=== PATIENT | male | born 1950 | race African-American/Black ===

== ENCOUNTER 2017-07-02 09:13 | Emergency (ER) | END 2017-07-02 15:46 | disposition home or self-care (01) ==

== ENCOUNTER 2018-08-12 07:24 | Inpatient (IN) | payer OTHER ==
[~2018-08-12] VITALS: Ht 170.2 cm; Wt 85.0 kg
[~2018-08-12 07:24] MED LIST: ALBU18HF INHALATION; ALBU2.5V3 NEB; CEPH-443 PO; IBUP-1542 PO; OXYC5CAP17 PO; TAMS-14 PO; ZOF8 PO
[2018-08-12] MEDS ORDERED: VANCOMYCIN 1 GM (PMX) 250 ML IVPB STA (07:46)
[2018-08-12] MEDS ORDERED: SODIUM CHLORIDE 0.9% 1L BAG IV* STA (07:46)
[2018-08-12] MEDS ORDERED: PIPER-TAZO 3.375 GM IV (PMX) 100 ML IVPB STA (07:46)
[2018-08-12] MEDS ORDERED: ONDANSETRON 4 MG INJ IV PRN ×2 (09:00→09:30)
[2018-08-12] MEDS ORDERED: ACETAMINOPHEN 325 MG TAB PO PRN ×2 (09:00→09:30)
[2018-08-12] MEDS ORDERED: morphine 4 MG/ML VIAL IV STA (09:02)
[2018-08-12] MEDS ORDERED: ONDANSETRON 4 MG INJ IV STA (09:02)
[2018-08-12] MEDS ORDERED: DOCUSATE SODIUM 100 MG CAP PO PRN (09:30)
[2018-08-12] MEDS ORDERED: oxyCODONE 5 MG TAB PO PRN (09:30)
[2018-08-12] MEDS ORDERED: NACL 0.9% 3 ML SYG IV SCH (09:30)
[2018-08-12] MEDS ORDERED: MAGNESIUM HYDROXIDE 30ML CUP PO PRN (09:30)
[2018-08-12] MEDS ORDERED: hydrALAzine 20 MG INJ IV PRN (09:30)
[2018-08-12] MEDS ORDERED: ALBUTEROL 0.083% (NEB) 2.5 MG/3 ML AMP NEB PRN (09:30)
[2018-08-12] MEDS ORDERED: VANCOMYCIN IV PER PHARMACY XX SCH (09:30)
--- NOTE | 2018-08-12 10:28 | ERD ---
ER Documentation Chief Complaint Chief Complaint right leg wound x 4 days HPI Patient is a 67-year-old male with hypertension who presents with bilateral leg wounds. He said that it started 2 weeks ago but have been worsening and he has been scratching them. There is redness which has been spreading. He says that he has had pain and has tried Advil. He has no fevers. The wounds are dripping and oozing. He is unsure if he has diabetes. Upon review of old medical records this is the patient's fourth visit to the ER since 2010. He does not currently have a primary doctor. ROS All systems reviewed and are negative except as per history of present illness. Medications Home Meds Active Scripts Ondansetron Hcl* (Zofran*) 8 Mg Tab, 8 MG PO Q6H PRN for NAUSEA AND OR VOMITING, #20 TAB Prov:GERARDO BYRD MD 07/02/17 Oxycodone Hcl* (IR) (Oxycodone Hcl*) 5 Mg Capsule, 5 MG PO Q6 PRN for PAIN, #10 TAB Prov:GERARDO BYRD MD 07/02/17 Cephalexin* (Keflex*) 500 Mg Capsule, 500 MG PO BID for 10 Days, CAP Prov:GERARDO BYRD MD 07/02/17 Ibuprofen* (Motrin*) 600 Mg Tab, 600 MG PO Q6H PRN for PAIN, #30 TAB Prov:GERARDO BYRD MD 07/02/17 Tamsulosin Hcl* (Flomax*) 0.4 Mg Cap.er.24h, 0.4 MG PO QPM, #7 CAP Prov:GERARDO BYRD MD 07/02/17 Reported Medications Albuterol Sulfate* (Ventolin HFA*) 18 Gm Hfa.aer.ad, 2 PUFF INHALATION Q4H, #1 INHALER 07/02/17 Albuterol Sulfate* (Albuterol Sulfate* Neb) 0.083%-3 Ml Neb, 1.25 MG NEB TID PRN for WHEEZING AND SOB, #30 VIAL 07/02/17 Allergies Allergies: Coded Allergies: No Known Allergies (Verified Allergy, Mild, 07/02/17) PMhx/Soc History of Surgery: No Anesthesia Reaction: No Hx Neurological Disorder: No Hx Respiratory Disorders: Yes (Asthma) Hx Cardiac Disorders: No Hx Psychiatric Problems: No Hx Miscellaneous Medical Probl: No Hx Alcohol Use: No Hx Substance Use: No Hx Tobacco Use: No Smoking Status: Never smoker FmHx Family History: diabetes Physical Exam Vitals Vital Signs Date Temp Pulse Resp B/P (MAP) Pulse Ox O2 O2 Flow FiO2 Time Delivery Rate 08/12/18 Nasal 08:10 Cannula 08/12/18 97.3 99 18 203/97 95 07:27 (132) Physical Exam Const: No acute distress Head: Atraumatic Eyes: Normal Conjunctiva ENT: Normal External Ears, Nose and Mouth. Neck: Full range of motion. No meningismus. Resp: Clear to auscultation bilaterally Cardio: Regular rate and rhythm, no murmurs Abd: Soft, non tender, non distended. Normal bowel sounds Skin: Bilateral lower extremity cellulitis with weeping and oozing and foul- smelling discharge Back: No midline or flank tenderness Ext: Bilateral lower extremity cellulitis Neur: Awake and alert Psych: Normal Mood and Affect Result Diagram: 08/12/18 0810 08/12/18 0810 Results 24 hrs Laboratory Tests Test 08/12/18 08:09 08/12/18 08:10 08/12/18 08:16 Urine Color YELLOW Urine Clarity CLEAR Urine pH 5.0 Urine Specific [place] 1.029 Urine Ketones TRACE mg/dL Urine Nitrite NEGATIVE mg/dL Urine Bilirubin NEGATIVE mg/dL Urine Urobilinogen 1+ mg/dL Urine Leukocyte Esterase NEGATIVE Bibi/ul Urine Hemoglobin NEGATIVE mg/dL Urine Glucose NEGATIVE mg/dL Urine Total Protein NEGATIVE mg/dl Hemoglobin A1c 7.9 % White Blood Count 10.9 10^3/ul Red Blood Count 4.37 10^6/ul Hemoglobin 13.1 g/dl Hematocrit 40.2 % Mean Corpuscular Volume 92.0 fl Mean Corpuscular Hemoglobin 30.0 pg Mean Corpuscular 32.6 g/dl Hemoglobin Concent Red Cell Distribution Width 12.7 % Platelet Count 369 10^3/UL Mean Platelet Volume 9.3 fl Immature Granulocytes % 0.500 % Neutrophils % 65.9 % Lymphocytes % 21.3 % Monocytes % 7.8 % Eosinophils % 4.0 % Basophils % 0.5 % Nucleated Red Blood Cells % 0.0 /100WBC Immature Granulocytes # 0.050 10^3/ul Neutrophils # 7.2 10^3/ul Lymphocytes # 2.3 10^3/ul Monocytes # 0.9 10^3/ul Eosinophils # 0.4 10^3/ul Basophils # 0.1 10^3/ul Nucleated Red Blood Cells # 0.0 10^3/ul Prothrombin Time 11.7 Sec Prothrombin Time Ratio 0.9 INR International 0.85 Normalized Ratio Activated Partial Thromboplast 24.7 Sec Time Sodium Level 140 mmol/L Potassium Level 4.2 mmol/L Chloride Level 109 mmol/L Carbon Dioxide Level 24 mmol/L Anion Gap 7 Blood Urea Nitrogen 14 mg/dl Creatinine 0.86 mg/dl Est Glomerular Filtrat > 60 mL/min Rate mL/min Glucose Level 151 mg/dl Calcium Level 9.2 mg/dl Total Bilirubin 0.2 mg/dl Direct Bilirubin 0.00 mg/dl Indirect Bilirubin 0.2 mg/dl Aspartate Amino Transf (AST/SGOT) 18 IU/L Alanine 14 IU/L Aminotransferase (ALT/SGPT) Alkaline Phosphatase 181 IU/L Troponin I < 0.012 ng/ml Total Protein 8.2 g/dl Albumin 4.0 g/dl Globulin 4.20 g/dl Albumin/Globulin Ratio 0.95 POC Venous Lactate 1.3 mmol/L Current Medications Medications Dose Sig/Rosalie Start Time Status Last (Trade) Ordered Route PRN Stop Time Admin Dose Reason Admin Sodium 2,550 ml BOLUS OVER 2 08/12/18 DC 08/12/18 Chloride HOURS STAT 07:46 08/12/18 08:30 (NS) IV* 07:47 Vancomycin 250 ml @ ONCE STAT 08/12/18 DC 08/12/18 HCl 125 mls/hr IVPB 07:46 08/12/18 09:31 09:45 Piperacillin 100 ml @ ONCE STAT 08/12/18 DC 08/12/18 Sod/ 200 mls/hr IVPB 07:46 08/12/18 08:29 Tazobactam 08:15 Sod Ondansetron 4 mg BRIDGE ORDER 08/12/18 HCl (Zofran PRN IV 09:00 08/13/18 Inj) NAUSEA/VOMITI 08:59 NG 650 mg ER BRIDGE 08/12/18 Acetaminophen PRN PO 09:00 08/13/18 (Tylenol .MILD PAIN 08:59 Tab) 1-3 OR TEMP Morphine 4 mg ONCE STAT 08/12/18 DC 08/12/18 Sulfate IV 09:02 08/12/18 09:20 (morphine) 09:03 Ondansetron 4 mg ONCE STAT 08/12/18 DC 08/12/18 HCl (Zofran IV 09:02 08/12/18 09:20 Inj) 09:03 Albuterol 1.25 mg TID PRN 08/12/18 (Proventil NEB WHEEZING 09:30 0.083% (Neb)) AND SOB Oxycodone 5 mg Q6H PRN 08/12/18 HCl PO PAIN 09:30 (Roxicodone) Tamsulosin 0.4 mg QPM PO 08/12/18 HCl 21:00 (Flomax) IV Flush 3 ml PER 08/12/18 (NS 3 ml) PROTOCOL IV 09:30 Ondansetron 4 mg Q6H PRN 08/12/18 HCl (Zofran IV 09:30 Inj) NAUSEA/VOMITI NG 650 mg Q6H PRN 08/12/18 Acetaminophen PO .PAIN 1-3 09:30 (Tylenol OR TEMP Tab) Morphine 2 mg Q4H PRN 08/12/18 Sulfate IV .SEVERE 09:30 (morphine) PAIN 7-10 Docusate 100 mg Q12H PRN 08/12/18 Sodium PO 09:30 (Colace) .CONSTIPATION Magnesium 30 ml DAILY PRN 08/12/18 Hydroxide PO 09:30 (Milk Of Mag) .CONSTIPATION Famotidine 20 mg Q12 PO 08/12/18 (Pepcid) 21:00 Enoxaparin 40 mg DAILY SC 08/13/18 Sodium 09:00 (Lovenox) Vancomycin 1 ea NOTE XX 08/12/18 HCl (Vanco 09:30 Iv Per Pharmacy) Piperacillin 100 ml @ Q8 IVPB 08/12/18 Sod/ 200 mls/hr 14:00 Tazobactam Sod Hydralazine 10 mg Q4H PRN 08/12/18 HCl IV SBP >170 09:30 (Apresoline) Discontinue ONCE ONCE 08/12/18 Miscellaneous current oral XX 10:30 08/12/18 sulfonylur... 10:31 Information (* Miscellaneous Pharmacy Order) ONCE ONCE 08/12/18 Miscellaneous HYPOGLYCEMIA XX 10:30 08/12/18 PROTOCOL 10:31 Information w... (* Miscellaneous Pharmacy Order) Insulin NOVOLOG WITH MEALS 08/12/18 Aspart *MILD* BEDTIME SC 12:00 (Novolog ALGORITHM Insulin Pen) Discontinue ONCE ONCE 08/12/18 Miscellaneous all previ... XX 10:30 08/12/18 10:31 Information (* Miscellaneous Pharmacy Order) 1 tab Q4H PRN 08/12/18 Acetaminophen PO MODERATE 10:30 / PAIN LEVEL Hydrocodone 4-6 Bitart ([place] (5/325)) Mupirocin 1 applic BID TOP 08/12/18 (Bactroban) 10:30 Procedures/MDM Patient is a 67-year-old male who presents with bilateral lower extremity cellulitis. I doubt sepsis at this time. The patient was given vancomycin and Zosyn and will be admitted to the care of the panel team to a medical surgical bed. He did have elevated blood pressure. Departure Diagnosis: Primary Impression: Cellulitis Site of cellulitis: extremity Site of cellulitis of extremity: lower extremity Laterality: unspecified laterality Qualified Codes: L03.119 - Cellulitis of unspecified part of limb Additional Impression: Hypertension Hypertension type: essential hypertension Qualified Codes: I10 - Essential (primary) hypertension Condition: YISEL Valles MD Aug 12, 2018 10:28
[2018-08-12] MEDS ORDERED: DIPHENHYDRAMINE 50 MG INJ IV PRN (10:30)
[2018-08-12] MEDS ORDERED: DEXTROSE 50% 50 ML SYRINGE IV PRN ×2 (11:00)
[2018-08-12] MEDS ORDERED: GLUCOSE GEL 15 GRAM TUBE PO PRN ×2 (11:00)
[2018-08-12] MEDS ORDERED: GLUCAGON 1 MG INJ IM PRN (11:00)
[2018-08-12] MEDS ORDERED: GLUCOSE GEL 15 GRAM TUBE BUCCAL PRN (11:00)
[2018-08-12] MEDS ORDERED: VANCOMYCIN 750 MG (PMX) 250 ML IVPB ONE (11:00)
[2018-08-12] MEDS: morphine 2 MG INJ IV PRN ×3 (12:18→22:25)
[2018-08-12] MEDS: MUPIROCIN 2% 22 GM OINT TOP SCH ×2 (12:36→21:04)
[2018-08-12 12:55] VITALS: BP 152/79; PULSE 76; RESP 16
[2018-08-12] MEDS: INSULIN ASPART [NOVOLOG] 3 ML PEN SC SCH ×3 (13:52→21:00)
--- NOTE | 2018-08-12 14:32 | HP ---
Date/Time of Note Date/Time of Note DATE: 08/12/18 TIME: 14:11 Assessment/Plan VTE Prophylaxis SCD applied (from Nsg): Yes Pharmacological prophylaxis: LMWH Lines/Catheters IV Catheter Type (from Nrsg): Saline Lock Assessment/Plan Assessment/Plan 1. Bilateral lower extremity pain - most likely from open sores from excess itching - will give bendryl and pain control - no real infection noted but will give empiric antibiotics and check wound culture - wound consultation placed - imaging studies negative for DVT or vascular compromise 2. New onset diabetes mellitus - A1c noted - will start sliding scale and consult Diabetic education - lifestyle modifications discussed 3. b/l LE edema - will check ECHO to evaluate EF - most likely secondary to prolonged standing with pooling of fluids but given has not been worked up by a PCP in a while, will check for heart failure 4. Asthma - stable - PRN Nebs 5. BPH - Flomax continued 6. Elevated BP - will start on Lisinopril and adjust as needed 7. Diet - carb controlled/ Cardiac 8. DVT ppx - SCD 9. Disposition - Admit to med/surg for treatment of bilateral lower extremity wounds Result Diagram: 08/12/18 0810 08/12/18 0810 Results 24hrs Laboratory Tests Test 08/12/18 08:09 08/12/18 08:10 08/12/18 08:16 08/12/18 11:06 Urine Color YELLOW Urine Clarity CLEAR Urine pH 5.0 Urine Specific [place] 1.029 Urine Ketones TRACE A Urine Nitrite NEGATIVE Urine Bilirubin NEGATIVE Urine Urobilinogen 1+ H Urine Leukocyte Esterase NEGATIVE Urine Hemoglobin NEGATIVE Urine Glucose NEGATIVE Urine Total Protein NEGATIVE Hemoglobin A1c 7.9 H White Blood Count 10.9 H Red Blood Count 4.37 L Hemoglobin 13.1 L Hematocrit 40.2 L Mean Corpuscular Volume 92.0 Mean Corpuscular 30.0 Hemoglobin Mean Corpuscular 32.6 Hemoglobin Concent Red Cell Distribution 12.7 Width Platelet Count 369 Mean Platelet Volume 9.3 Immature Granulocytes % 0.500 H Neutrophils % 65.9 Lymphocytes % 21.3 Monocytes % 7.8 Eosinophils % 4.0 Basophils % 0.5 Nucleated Red Blood 0.0 Cells % Immature Granulocytes # 0.050 H Neutrophils # 7.2 Lymphocytes # 2.3 Monocytes # 0.9 Eosinophils # 0.4 Basophils # 0.1 Nucleated Red Blood 0.0 Cells # Prothrombin Time 11.7 L Prothrombin Time Ratio 0.9 INR International 0.85 Normalized Ratio Activated 24.7 Partial Thromboplast Time Sodium Level 140 Potassium Level 4.2 Chloride Level 109 Carbon Dioxide Level 24 Anion Gap 7 Blood Urea Nitrogen 14 Creatinine 0.86 Est Glomerular Filtrat > 60 Rate mL/min Glucose Level 151 Calcium Level 9.2 Total Bilirubin 0.2 Direct Bilirubin 0.00 Indirect Bilirubin 0.2 Aspartate Amino 18 Transf (AST/SGOT) Alanine 14 Aminotransferase (ALT/SG PT) Alkaline Phosphatase 181 H Troponin I < 0.012 Total Protein 8.2 H Albumin 4.0 Globulin 4.20 H Albumin/Globulin Ratio 0.95 POC Venous Lactate 1.3 Lactic Acid Level 1.6 Test 08/12/18 13:40 Bedside Glucose 149 HPI/ROS Admit Date/Time Admit Date/Time Aug 12, 2018 at 08:59 Hx of Present Illness 67 yo M with no known significant past medical history except for asthma presented to ED with worsening bilateral lower extremity pain and drainage over the past 3 weeks. 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 He also complains of pruritus and leading to opening of his wounds on lower extremities. He does admit to taking Epsom salt baths to keep wounds clean and dry and wraps with jenna bandage when on his feet for long periods of time. Patient has not been to PCP in a while since states does not have any issues. Does admit to family history of diabetes. Patient does admit to fevers but denies any chills, headaches, dizziness, nausea, vomiting, abdominal pain, urinary issues. Does a dmit to neuropathy in feet bilaterally. Constipation noted as well. ROS All 12 systems reviewed and pertinent positives as per HPI. All others negative. Constitutional: No nausea Eyes: No discharge ENT: No congestion Respiratory: No cough, No shortness of breath, No sputum, No wheezing Cardiovascular: No chest pain, No lightheadedness, No palpitations Gastrointestinal: constipation; No pain, No diarrhea, No nausea, No vomiting Genitourinary: no complaints Musculoskeletal: swelling, other (lower extremities pain) Skin: laceration, pruritis, skin lesions; No bruising, No rash Neurologic: no complaints Endocrine: no complaints Lymphatic: no complaints Psychological: nl mood/affect Immunologic: no complaints PMH/Family/Social Past Medical History Medical History: other (asthma) Medications Current Medications Ondansetron HCl (Zofran Inj) 4 mg BRIDGE ORDER PRN IV NAUSEA/VOMITING Last administered on 08/12/18at 12:18; Admin Dose 4 MG; Start 08/12/18 at 09:00; Stop 08/13/18 at 08:59 Oxycodone HCl (Roxicodone) 5 mg Q6H PRN PO PAIN; Start 08/12/18 at 09:30 Tamsulosin HCl (Flomax) 0.4 mg QPM PO ; Start 08/12/18 at 21:00 IV Flush (NS 3 ml) 3 ml PER PROTOCOL IV ; Start 08/12/18 at 09:30 Ondansetron HCl (Zofran Inj) 4 mg Q6H PRN IV NAUSEA/VOMITING; Start 08/12/18 at 09:30 Acetaminophen (Tylenol Tab) 650 mg Q6H PRN PO .PAIN 1-3 OR TEMP; Start 08/12/18 at 09:30 Morphine Sulfate (morphine) 2 mg Q4H PRN IV .SEVERE PAIN 7-10 Last administered on 08/12/18at 12:18; Admin Dose 2 MG; Start 08/12/18 at 09:30 Docusate Sodium (Colace) 100 mg Q12H PRN PO .CONSTIPATION; Start 08/12/18 at 09:30 Magnesium Hydroxide (Milk Of Mag) 30 ml DAILY PRN PO .CONSTIPATION; Start 08/12/18 at 09:30 Famotidine (Pepcid) 20 mg Q12 PO ; Start 08/12/18 at 21:00 Enoxaparin Sodium (Lovenox) 40 mg DAILY SC ; Start 08/13/18 at 09:00 Vancomycin HCl (Vanco Iv Per Pharmacy) 1 ea NOTE XX ; Start 08/12/18 at 09:30 Piperacillin Sod/ Tazobactam Sod 100 ml @ 200 mls/hr Q8 IVPB ; Start 08/12/18 at 14:00 Hydralazine HCl (Apresoline) 10 mg Q4H PRN IV SBP >170 Last administered on 08/12/18at 12:19; Admin Dose 10 MG; Start 08/12/18 at 09:30 Insulin Aspart (Novolog Insulin Pen) NOVOLOG *MILD* ALGORITHM WITH MEALS BEDTIME SC Last administered on 08/12/18at 13:52; Admin Dose 1 UNIT; Start 08/12/18 at 12:00 Acetaminophen/ Hydrocodone Bitart ([place] (5/325)) 1 tab Q4H PRN PO MODERATE PAIN LEVEL 4-6; Start 08/12/18 at 10:30 Mupirocin (Bactroban) 1 applic BID TOP Last administered on 08/12/18at 12:36; Admin Dose 1 APPLIC; Start 08/12/18 at 10:30 Diphenhydramine HCl (Benadryl) 25 mg Q6H PRN IV itching; Start 08/12/18 at 10:30 Vancomycin HCl 250 ml @ 125 mls/hr Q12H IVPB ; Start 08/12/18 at 23:00 Miscellaneous Information 1 ea NOTE XX ; Start 08/12/18 at 11:00 Glucose (Glutose) 15 gm Q15M PRN PO DECREASED GLUCOSE; Start 08/12/18 at 11:00 Glucose (Glutose) 22.5 gm Q15M PRN PO DECREASED GLUCOSE; Start 08/12/18 at 11:00 Dextrose (D50w Syringe) 25 ml Q15M PRN IV DECREASED GLUCOSE; Start 08/12/18 at 1 1:00 Dextrose (D50w Syringe) 50 ml Q15M PRN IV DECREASED GLUCOSE; Start 08/12/18 at 11:00 Glucagon (Glucagen) 1 mg Q15M PRN IM DECREASED GLUCOSE; Start 08/12/18 at 11:00 Glucose (Glutose) 15 gm Q15M PRN BUCCAL DECREASED GLUCOSE; Start 08/12/18 at 11:00 Albuterol (Proventil 0.083% (Neb)) 1.25 mg Q4H PRN NEB WHEEZING AND SOB; Start 08/12/18 at 17:30; Status UNV Coded Allergies: No Known Allergies (Verified Allergy, Mild, 07/02/17) Past Surgical History Past Surgical Hx: no surgical history Family History Significant Family History: diabetes Social History Alcohol Use: none Smoking Status: Never smoker Drug Use: none Exam/Review of Systems Vital Signs Vitals Vital Signs Date Temp Pulse Resp B/P (MAP) Pulse Ox O2 O2 Flow FiO2 Time Delivery Rate 08/12/18 97.6 76 16 152/79 97 12:55 (103) 08/12/18 Room Air 12:39 Exam Exam General: Patient currently lying in bed, no acute distress. answering questions appropriately HEENT: Atraumatic, normocephalic. The pupils are equal, round and reactive. Extraocular motor are intact Neck: Supple with full range of motion. No rigidity or meningismus Chest: Nontender Lungs: Clear to auscultation bilaterally no crackles rales or wheezing Heart: Normal S1-S2, Regular rhythm and rate. No murmur, S3, or S4 Abdomen: Soft , nontender, nondistended , bowel sounds are present. No guarding no rebound tenderness , No masses or organomegaly. No costovertebral temporal angle mass Extremities: moving all extremities. 1+ pitting edema lower extremities elina aterally. pulses intact Skin: Dry skin with abrasions and bleeding wounds with excoriations noted Neurologic: Normal mental status, speech normal, cranial nerves II through XII are intact, motor intact, sensation diminished in feet bilaterally Additional Comments Home medications reviewed PROCEDURE: Single view chest. CLINICAL INDICATION: Sepsis TECHNIQUE: Single view of the chest was obtained COMPARISON: None FINDINGS: Lung volumes are mildly diminished. There is no airspace consolidation, focal infiltrate or evidence of an effusion. Cardiac silhouette and mediastinal contours are unremarkable. Regional bones appear intact. IMPRESSION: Mildly diminished lung volumes, otherwise no acute findings. RPTAT: [facility] Physician La Date Time Electronically viewed and signed by Physician La on 08/12/2018 08:45 PROCEDURE: US Lower extremity arterial. CLINICAL INDICATION: peripheral arterial disease, claudication, leg pain TECHNIQUE: Multiple sonographic images of the bilateral lower extremity arteries were obtained utilizing grayscale, color-flow and doppler imaging. The images were reviewed on a PACS workstation. COMPARISON: None. FINDINGS: Moderate scattered calcified plaque bilaterally. Velocities and waveforms were obtained as described below: RIGHT LEG: Right common femoral artery: 91.2 cm/s; normal Right proximal superficial femoral artery: 84.7 cm/s; normal Right mid superficial femoral artery: 103.7 cm/s; normal Right distal superficial femoral artery: 109.5 cm/s; normal Right popliteal artery: 79.8 cm/s; normal Right posterior tibial artery: 51.5 cm/s; monophasic Right dorsalis pedis artery: 57.6 cm/s; monophasic Right ROCÍO: Not obtained. LEFT LEG: Left common femoral artery: 85.2 cm/s; normal Left proximal superficial femoral artery: 86.8 cm/s; normal Left mid superficial femoral artery: 97 cm/s; normal Left distal superficial femoral artery: 91.1 cm/s; normal Left popliteal artery: 77.7 cm/s; normal Left posterior tibial artery: 93.4 cm/s; normal Left dorsalis pedis artery: 65.5 cm/s; monophasic Left ROCÍO: Not obtained. IMPRESSION: 1. No focal hemodynamically significant stenosis bilaterally. 2. Blunted waveforms distally bilaterally compatible with vascular resistance. Diagnostic Criteria: 0 to 30%: Velocity: < 150 cm/sec, Ratio: < 1.5 : 1 30 to 49%: Velocity: 150-200 cm/sec, Ratio: 1.5:1 to 2:0 50 to 75%: Velocity: 200-400 cm/sec, Ratio: 2:0 to 4:0 75 to 99%: Velocity: > 400 cm/sec, Ratio: > 4.0 : 1 RPTAT: [facility] Physician Fay Date Time Electronically viewed and signed by Yolanda Morales Physician on 08/12/2018 11:27 PROCEDURE: US DVT. CLINICAL INDICATION: Lower extremity pain and swelling. TECHNIQUE: Thornton scale and duplex Doppler sonographic evaluation of the bilateral lower extremity veins was performed with augmentation and compression techniques. COMPARISON: No prior studies are available for comparison. FINDINGS: RIGHT: The right common femoral, femoral, and popliteal veins are patent with normal vascular flow. There is normal compressibility and augmentation. The right posterior tibial and peroneal veins are patent. LEFT: The left common femoral, femoral, and popliteal veins are patent with normal vascular flow. There is normal compressibility and augmentation. The left posterior tibial and peroneal veins are patent. IMPRESSION: 1. No evidence of deep venous thrombosis in the bilateral lower extremities. RPTAT: EE Cristina Claudio, Physician Date Time Electronically viewed and signed by Cristina Claudio, Physician on 08/12/2018 10:53 FRIDA PETERSON MD Aug 12, 2018 14:22
[2018-08-12 14:40] VITALS: BP 141/75; PULSE 92; RESP 16
[2018-08-12] MEDS: LISINOPRIL 5 MG TAB PO SCH (14:49)
[2018-08-12] MEDS: PIPER-TAZO 3.375 GM IV (PMX) 100 ML IVPB SCH ×2 (14:49→21:34)
[2018-08-12 14:58] VITALS: Ht 170.2 cm; Wt 85.0 kg
[2018-08-12 20:00] VITALS: BP 131/72; PULSE 80; RESP 18
[2018-08-12] MEDS: TAMSULOSIN (SR) 0.4 MG CAP PO SCH (21:01)
[2018-08-12] MEDS: FAMOTIDINE 20 MG TAB PO SCH (21:01)
[2018-08-12] MEDS ORDERED: VANCOMYCIN 1 GM 250 ML IVPB SCH (23:00)
[2018-08-13 02:00] VITALS: BP 112/56; PULSE 84; RESP 20
[2018-08-13] MEDS: PIPER-TAZO 3.375 GM IV (PMX) 100 ML IVPB SCH ×3 (05:52→21:00)
[2018-08-13 08:05] VITALS: BP 120/65; PULSE 80; RESP 18
[2018-08-13] MEDS: INSULIN ASPART [NOVOLOG] 3 ML PEN SC SCH ×4 (08:07→20:49)
[2018-08-13] MEDS: LISINOPRIL 5 MG TAB PO SCH (08:08)
[2018-08-13] MEDS: FAMOTIDINE 20 MG TAB PO SCH ×2 (08:08→20:48)
[2018-08-13] MEDS: ENOXAPARIN 40 MG/0.4 ML SYG SC SCH (08:08)
[2018-08-13] MEDS: MUPIROCIN 2% 22 GM OINT TOP SCH ×2 (08:15→20:50)
--- NOTE | 2018-08-13 09:23 | PN ---
Date/Time of Note Date/Time of Note DATE: 08/13/18 TIME: 09:13 Assessment/Plan VTE Prophylaxis Risk score (from Ns)>0 risk: 3 SCD applied (from Ns): No SCD contraindicated: bilateral LE trauma Pharmacological prophylaxis: LMWH Lines/Catheters IV Catheter Type (from Nrsg): [place] Assessment/Plan Assessment/Plan 1. Bilateral lower extremity pain- improved - pain control - continue local wound care - wound consultation placed - continue empiric antibiotics but no real infection appreciated. Given new onset diabetes has risk for infection and poor wound healing - imaging studies negative for DVT or vascular compromise 2. New onset diabetes mellitus - A1c noted - lifestyle modifications discussed - Diabetic education consulted for teaching - patient wound benefit from Metformin upon discharge 3. b/l LE edema - stable 4. Asthma - stable - PRN Nebs 5. BPH - Flomax continued 6. Elevated BP - improved with Lisinopril 7. Disposition - Awaiting diabetic education and wound care consultation Result Diagram: 08/13/18 0442 08/13/18 0442 Results 24hrs Laboratory Tests Test 08/12/18 11:06 08/12/18 13:38 08/12/18 13:40 08/12/18 17:46 Lactic Acid Level 1.6 1.6 Bedside Glucose 149 131 Test 08/12/18 21:03 08/13/18 04:42 08/13/18 08:03 Bedside Glucose 127 156 White Blood Count 10.3 Red Blood Count 3.97 L Hemoglobin 11.8 L Hematocrit 36.6 L Mean Corpuscular Volume 92.2 Mean Corpuscular 29.7 Hemoglobin Mean Corpuscular 32.2 Hemoglobin Concent Red Cell Distribution 12.8 Width Platelet Count 340 Mean Platelet Volume 9.6 Immature Granulocytes % 0.500 H Neutrophils % 69.5 Lymphocytes % 17.4 Monocytes % 8.9 Eosinophils % 3.3 Basophils % 0.4 Nucleated Red Blood 0.0 Cells % Immature Granulocytes # 0.050 H Neutrophils # 7.2 Lymphocytes # 1.8 Monocytes # 0.9 Eosinophils # 0.3 Basophils # 0.0 Nucleated Red Blood 0.0 Cells # Sodium Level 139 Potassium Level 4.1 Chloride Level 108 Carbon Dioxide Level 28 Anion Gap 3 L Blood Urea Nitrogen 14 Creatinine 0.99 Est Glomerular Filtrat > 60 Rate mL/min Glucose Level 195 Calcium Level 8.7 Magnesium Level 2.0 Triglycerides Level 149 Cholesterol Level 114 LDL Cholesterol, 57 Calculated HDL Cholesterol 27 L Cholesterol/HDL Ratio 4.2 Subjective 24 Hr Interval Summary Free Text/Dictation Patient doing well and states hes feeling better since admission. Still with itching but not requiring Benadryl at this time. Exam/Review of Systems Exam Vitals Vital Signs Date Temp Pulse Resp B/P (MAP) Pulse Ox O2 O2 Flow FiO2 Time Delivery Rate 08/13/18 98.3 80 18 120/65 95 Room Air 08:05 (83) Intake and Output 08/12/18 08/12/18 08/13/18 1515:00 23:00 07:00 IntakeIntake Total 1900 ml 1070 ml 350 ml OutputOutput Total 400 ml 1200 ml 500 ml BalanceBalance 1500 ml -130 ml -150 ml Exam General: No acute distress. awake and alert Lungs: Clear to auscultation bilaterally no crackles rales or wheezing Heart: Normal S1-S2, Regular rhythm and rate. No murmur, S3, or S4 Abdomen: Soft , nontender, nondistended , bowel sounds are present. No guarding no rebound tenderness Extremities: 1+ pitting edema lower extremities bilaterally. pulses intact Skin: dressing around shins bilaterally. dry skin, Neurologic: Normal mental status, speech normal, cranial nerves II through XII are intact, motor intact, sensation diminished in feet bilaterally Results Results 24hrs Laboratory Tests Test 08/12/18 11:06 08/12/18 13:38 08/12/18 13:40 08/12/18 17:46 Lactic Acid Level 1.6 1.6 Bedside Glucose 149 131 Test 08/12/18 21:03 08/13/18 04:42 08/13/18 08:03 Bedside Glucose 127 156 White Blood Count 10.3 Red Blood Count 3.97 L Hemoglobin 11.8 L Hematocrit 36.6 L Mean Corpuscular Volume 92.2 Mean Corpuscular 29.7 Hemoglobin Mean Corpuscular 32.2 Hemoglobin Concent Red Cell Distribution 12.8 Width Platelet Count 340 Mean Platelet Volume 9.6 Immature Granulocytes % 0.500 H Neutrophils % 69.5 Lymphocytes % 17.4 Monocytes % 8.9 Eosinophils % 3.3 Basophils % 0.4 Nucleated Red Blood 0.0 Cells % Immature Granulocytes # 0.050 H Neutrophils # 7.2 Lymphocytes # 1.8 Monocytes # 0.9 Eosinophils # 0.3 Basophils # 0.0 Nucleated Red Blood 0.0 Cells # Sodium Level 139 Potassium Level 4.1 Chloride Level 108 Carbon Dioxide Level 28 Anion Gap 3 L Blood Urea Nitrogen 14 Creatinine 0.99 Est Glomerular Filtrat > 60 Rate mL/min Glucose Level 195 Calcium Level 8.7 Magnesium Level 2.0 Triglycerides Level 149 Cholesterol Level 114 LDL Cholesterol, 57 Calculated HDL Cholesterol 27 L Cholesterol/HDL Ratio 4.2 Medications Medication Current Medications Oxycodone HCl (Roxicodone) 5 mg Q6H PRN PO PAIN; Start 08/12/18 at 09:30 Tamsulosin HCl (Flomax) 0.4 mg QPM PO Last administered on 08/12/18at 21:01; Admin Dose 0.4 MG; Start 08/12/18 at 21:00 IV Flush (NS 3 ml) 3 ml PER PROTOCOL IV ; Start 08/12/18 at 09:30 Ondansetron HCl (Zofran Inj) 4 mg Q6H PRN IV NAUSEA/VOMITING; Start 08/12/18 at 09:30 Acetaminophen (Tylenol Tab) 650 mg Q6H PRN PO .PAIN 1-3 OR TEMP; Start 08/12/18 at 09:30 Morphine Sulfate (morphine) 2 mg Q4H PRN IV .SEVERE PAIN 7-10 Last administered on 08/12/18at 22:25; Admin Dose 2 MG; Start 08/12/18 at 09:30 Docusate Sodium (Colace) 100 mg Q12H PRN PO .CONSTIPATION; Start 08/12/18 at 09:30 Magnesium Hydroxide (Milk Of Mag) 30 ml DAILY PRN PO .CONSTIPATION; Start 08/12/18 at 09:30 Famotidine (Pepcid) 20 mg Q12 PO Last administered on 08/13/18at 08:08; Admin Dose 20 MG; Start 08/12/18 at 21:00 Enoxaparin Sodium (Lovenox) 40 mg DAILY SC Last administered on 08/13/18at 08:08; Admin Dose 40 MG; Start 08/13/18 at 09:00 Vancomycin HCl (Vanco Iv Per Pharmacy) 1 ea NOTE XX ; Start 08/12/18 at 09:30 Piperacillin Sod/ Tazobactam Sod 100 ml @ 200 mls/hr Q8 IVPB Last administered on 08/13/18at 05:52; Admin Dose 200 MLS/HR; Start 08/12/18 at 14:00 Hydralazine HCl (Apresoline) 10 mg Q4H PRN IV SBP >170 Last administered on 08/12/18at 12:19; Admin Dose 10 MG; Start 08/12/18 at 09:30 Insulin Aspart (Novolog Insulin Pen) NOVOLOG *MILD* ALGORITHM WITH MEALS BEDTIME SC Last administered on 08/13/18at 08:07; Admin Dose 1 UNIT; Start 08/12/18 at 12:00 Acetaminophen/ Hydrocodone Bitart ([place] (5/325)) 1 tab Q4H PRN PO MODERATE PAIN LEVEL 4-6; Start 08/12/18 at 10:30 Mupirocin (Bactroban) 1 applic BID TOP Last administered on 08/13/18at 08:15; Admin Dose 1 APPLIC; Start 08/12/18 at 10:30 Diphenhydramine HCl (Benadryl) 25 mg Q6H PRN IV itching; Start 08/12/18 at 10:30 Vancomycin HCl 250 ml @ 125 mls/hr Q12H IVPB Last administered on 08/12/18at 22:25; Admin Dose 125 MLS/HR; Start 08/12/18 at 23:00 Miscellaneous Information 1 ea NOTE XX ; Start 08/12/18 at 11:00 Glucose (Glutose) 15 gm Q15M PRN PO DECREASED GLUCOSE; Start 08/12/18 at 11:00 Glucose (Glutose) 22.5 gm Q15M PRN PO DECREASED GLUCOSE; Start 08/12/18 at 11:00 Dextrose (D50w Syringe) 25 ml Q15M PRN IV DECREASED GLUCOSE; Start 08/12/18 at 11:00 Dextrose (D50w Syringe) 50 ml Q15M PRN IV DECREASED GLUCOSE; Start 08/12/18 at 11:00 Glucagon (Glucagen) 1 mg Q15M PRN IM DECREASED GLUCOSE; Start 08/12/18 at 11:00 Glucose (Glutose) 15 gm Q15M PRN BUCCAL DECREASED GLUCOSE; Start 08/12/18 at 11:00 Albuterol (Proventil 0.083% (Neb)) 1.25 mg Q4H PRN NEB WHEEZING AND SOB; Start 08/12/18 at 17:30 Lisinopril (Zestril) 5 mg DAILY PO Last administered on 08/13/18at 08:08; Admin Dose 5 MG; Start 08/12/18 at 15:00 FRIDA PETERSON MD Aug 13, 2018 09:23
[2018-08-13] MEDS: morphine 2 MG INJ IV PRN ×2 (09:39→14:58)
--- NOTE | 2018-08-13 09:51 | RADRPT ---
Echocardiogram Report Patient Name: IZABELA GAUTHIERPatient ID: [id number] : 1950 (67y 10m)Study Date: 08/12/2018 11:58:42 AM Gender: MAccession #: [id number] Tech: Bozena Villanueva RDCS Location: Ref.Physician: FRIDA PETERSON Height(Cm): BSA: Weight(Kg): Quality: AdequateOrder Physician: FRIDA PETERSON Account #: Procedures: Echocardiographic Report: Transthoracic echocardiogram with complete 2D, M-Mode, and doppler examination. Indications: Evaluate Left Ventricular function. Measurements: 2D/M Mode Doppler Measurement Value Normal Range Measurement Value Normal Range LVIDd 2D 5.0 [ 4.2 - 5.8 ] cm AV Peak Jb 1.2 [ 100.0 - 170.0 ] cm/se c LVIDs 2D 3.1 [ 2.5 - 4.0 ] cm AV Peak PG 6.0 [ 2.0 - 9.0 ] mmHg LVPWd 2D 0.9 [ 0.6 - 1.0 ] cm LVOT Peak Jb 1.0 [ 70.0 - 110.0 ] cm/sec IVSd 2D 0.7 [ 0.6 - 1.0 ] cm LVOT Peak PG 4.0 [ 2.0 - 6.0 ] mmHg AoR Diam 2D 3.1 [ 2.6 - 3.4 ] cm MV E Peak Jb 0.9 [ 60.0 - 130.0 ] cm/sec EDV 2D 120.0 [ 62.0 - 150.0 ] ml MV A Peak Jb 0.5 [ 100.0 - 120.0 ] cm/se c ESV 2D 38.5 [ 21.0 - 61.0 ] ml MV E/A 2.0 [ 0.8 - 1.5 ] ratio EF 2D 67.9 [ 52.0 - 72.0 ] percent MV PHT 85.0 [ 20.0 - 100.0 ] msec LA Dimen 2D 3.9 [ 3.0 - 4.0 ] cm MV Decel Time 289 [ 104 - 258 ] msec MV Decel [place] 3 Lat E` Jb 0.1 [ 10.0 - 15.0 ] cm/sec Lateral E/E` 7.3 [ 1.0 - 2.0 ] ratio Med E` Jb 0.1 cm/sec MV E/A 2.0 [ 0.8 - 1.5 ] ratio MVA PHT 2.6 [ 2.0 - 4.0 ] cm2 Findings: Left Ventricle: Normal left ventricular systolic function. Normal left ventricular cavity size. Normal left ventricular wall thickness. Ejection fraction is visually estimated at 55-60 %. Tissue Doppler/Mitral Doppler indices are within normal limits. Right Ventricle: Normal right ventricular size. Normal right ventricular systolic function. Left Atrium: The left atrium is normal in size. Not well visualized. Right Atrium: The right atrium is normal in size. Atrial Septum: Normal atrial septum. Ventricular septum: Normal/intact ventricular septum. Mitral Valve: Normal appearance of the mitral valve. Trace mitral regurgitation. Aortic Valve: Normal appearance of the aortic valve. No aortic regurgitation. Tricuspid Valve: Normal appearance of the tricuspid valve. Unable to obtain RVSP due to minimal presence of tricuspid regurgitation. There is trace tricuspid regurgitation. Pulmonic Valve: Normal pulmonic valve appearance. Pericardium: Normal pericardium with no significant pericardial effusion. Aorta: Normal aortic root. IVC: Normal size and normal respiratory collapse consistent with normal right atrial pressure. Conclusions: Normal left ventricular systolic function. Normal left ventricular cavity size. Normal left ventricular wall thickness. Ejection fraction is visually estimated at 55-60 %. Tissue Doppler/Mitral Doppler indices are within normal limits. Normal right ventricular size. Normal right ventricular systolic function. Normal appearance of the mitral valve. Trace mitral regurgitation. Normal appearance of the aortic valve. No aortic regurgitation. Electronically Signed By: Marco A Hill 2018-08-13 09:50:16 PDT
[2018-08-13 15:22] VITALS: BP 131/85; PULSE 76; RESP 18
[2018-08-13 20:00] VITALS: BP 130/72; PULSE 71; RESP 18
[2018-08-13] MEDS: HYDROCODONE/APAP (5/325) TAB PO PRN (20:48)
[2018-08-13] MEDS: TAMSULOSIN (SR) 0.4 MG CAP PO SCH (20:48)
[2018-08-14 02:00] VITALS: BP 121/68; PULSE 68; RESP 18
[2018-08-14] MEDS: HYDROCODONE/APAP (5/325) TAB PO PRN ×2 (03:42→20:18)
[2018-08-14] MEDS: morphine 2 MG INJ IV PRN ×5 (03:42→20:19)
[2018-08-14] MEDS: PIPER-TAZO 3.375 GM IV (PMX) 100 ML IVPB SCH ×3 (06:10→20:18)
[2018-08-14] MEDS: ALBUTEROL 0.083% (NEB) 2.5 MG/3 ML AMP NEB PRN ×2 (06:16→12:49)
[2018-08-14] MEDS: INSULIN ASPART [NOVOLOG] 3 ML PEN SC SCH ×4 (07:56→20:25)
[2018-08-14 08:22] VITALS: BP 133/69; PULSE 65; RESP 20
[2018-08-14] MEDS: MUPIROCIN 2% 22 GM OINT TOP SCH ×2 (08:37→20:25)
[2018-08-14] MEDS: LISINOPRIL 5 MG TAB PO SCH (08:37)
[2018-08-14] MEDS: FAMOTIDINE 20 MG TAB PO SCH ×2 (08:37→20:18)
[2018-08-14] MEDS: ENOXAPARIN 40 MG/0.4 ML SYG SC SCH (08:39)
--- NOTE | 2018-08-14 13:42 | PN ---
Date/Time of Note Date/Time of Note DATE: 08/14/18 TIME: 13:41 Objective Vitals Vital Signs Date Temp Pulse Resp B/P (MAP) Pulse Ox O2 O2 Flow FiO2 Time Delivery Rate 08/14/18 77 20 21 12:50 08/14/18 98.1 133/69 95 Room Air 08:22 (90) Intake and Output 08/13/18 08/13/18 08/14/18 1515:00 23:00 07:00 IntakeIntake Total 720 ml 1040 ml 100 ml OutputOutput Total 500 ml 550 ml 850 ml BalanceBalance 220 ml 490 ml -750 ml Results Result Diagram: 08/14/18 0539 08/14/1839 Medications Medications Current Medications Oxycodone HCl (Roxicodone) 5 mg Q6H PRN PO PAIN; Start 08/12/18 at 09:30 Tamsulosin HCl (Flomax) 0.4 mg QPM PO Last administered on 08/13/18at 20:48; Admin Dose 0.4 MG; Start 08/12/18 at 21:00 IV Flush (NS 3 ml) 3 ml PER PROTOCOL IV ; Start 08/12/18 at 09:30 Ondansetron HCl (Zofran Inj) 4 mg Q6H PRN IV NAUSEA/VOMITING Last administered on 08/13/18at 20:59; Admin Dose 4 MG; Start 08/12/18 at 09:30 Acetaminophen (Tylenol Tab) 650 mg Q6H PRN PO .PAIN 1-3 OR TEMP; Start 08/12/18 at 09:30 Morphine Sulfate (morphine) 2 mg Q4H PRN IV .SEVERE PAIN 7-10 Last administered on 08/14/18at 08:48; Admin Dose 2 MG; Start 08/12/18 at 09:30 Docusate Sodium (Colace) 100 mg Q12H PRN PO .CONSTIPATION; Start 08/12/18 at 09:30 Magnesium Hydroxide (Milk Of Mag) 30 ml DAILY PRN PO .CONSTIPATION; Start 08/12/18 at 09:30 Famotidine (Pepcid) 20 mg Q12 PO Last administered on 08/14/18at 08:37; Admin Dose 20 MG; Start 08/12/18 at 21:00 Enoxaparin Sodium (Lovenox) 40 mg DAILY SC Last administered on 08/14/18 08:39; Admin Dose 40 MG; Start 08/13/18 at 09:00 Hydralazine HCl (Apresoline) 10 mg Q4H PRN IV SBP >170 Last administered on 08/12/18 12:19; Admin Dose 10 MG; Start 08/12/18 at 09:30 Insulin Aspart (Novolog Insulin Pen) NOVOLOG *MILD* ALGORITHM WITH MEALS BEDTIME SC Last administered on 08/14/18 07:56; Admin Dose 1 UNIT; Start 08/12/18 at 12:00 Acetaminophen/ Hydrocodone Bitart ([place] (5/325)) 1 tab Q4H PRN PO MODERATE PAIN LEVEL 4-6 Last administered on 08/14/18 03:42; Admin Dose 1 TAB; Start 08/12/18 at 10:30 Mupirocin (Bactroban) 1 applic BID TOP Last administered on 08/14/18 08:37; Admin Dose 1 APPLIC; Start 08/12/18 at 10:30 Diphenhydramine HCl (Benadryl) 25 mg Q6H PRN IV itching; Start 08/12/18 at 10:30 Miscellaneous Information 1 ea NOTE XX ; Start 08/12/18 at 11:00 Glucose (Glutose) 15 gm Q15M PRN PO DECREASED GLUCOSE; Start 08/12/18 at 11:00 Glucose (Glutose) 22.5 gm Q15M PRN PO DECREASED GLUCOSE; Start 08/12/18 at 11:00 Dextrose (D50w Syringe) 25 ml Q15M PRN IV DECREASED GLUCOSE; Start 08/12/18 at 11:00 Dextrose (D50w Syringe) 50 ml Q15M PRN IV DECREASED GLUCOSE; Start 08/12/18 at 11:00 Glucagon (Glucagen) 1 mg Q15M PRN IM DECREASED GLUCOSE; Start 08/12/18 at 11:00 Glucose (Glutose) 15 gm Q15M PRN BUCCAL DECREASED GLUCOSE; Start 08/12/18 at 11:00 Albuterol (Proventil 0.083% (Neb)) 1.25 mg Q4H PRN NEB WHEEZING AND SOB Last administered on 08/14/18at 12:49; Admin Dose 1.25 MG; Start 08/12/18 at 17:30 Lisinopril (Zestril) 5 mg DAILY PO Last administered on 08/14/18at 08:37; Admin Dose 5 MG; Start 08/12/18 at 15:00 Metformin HCl (Glucophage) 500 mg BID WITH MEALS PO ; Start 08/14/18 at 18:00 Piperacillin Sod/ Tazobactam Sod 100 ml @ 200 mls/hr Q6 IVPB ; Start 08/14/18 at 14:00; Status UNV VTE Prophylaxis Risk score (from [facility] [place])>0 risk: 3 SCD applied (from [facility] [place]): No SCD contraindication: other Lines/Catheters IV Catheter Type: Mckeon in Place: No Assessment/Plan Hospital Course Subjective Patient had worsening and oozing of his bilateral leg wounds today, otherwise feels okay Objective Physical exam General: Patient is laying in bed and answers questions appropriately Mentation: Patient is alert and oriented 4, Head: Normocephalic atraumatic Eyes: EOMI, pupils reactive to light Neck: Supple, nontender, midline Respiratory: Clear to auscultation bilaterally Cardiovascular: regular rate, no obvious murmurs Gastrointestinal: non-tender to palpation, bowel sounds heard. Neurological: Moves all extremities spontaneously Skin: Bilateral leg wounds bandaged, oozing Assessment/Plan 1. Bilateral lower extremity pain-mild improvement but worsening today - pain control - continue local wound care - wound consultation placed, however due to degree of wounds, they recommend getting vascular consultation before a wound recommendation. - continue empiric antibiotics, continued oozing, given new onset diabetes has risk for infection and poor wound healing -Overt infection is questionable however patient is at high risk of secondary infection given his likely chronic venous stasis and open leg wounds. Will need to continue IV antibiotic for now, infectious disease consulted - imaging studies negative for DVT 2. New onset diabetes mellitus - A1c noted - lifestyle modifications discussed - Diabetic education consulted for teaching - patient wound benefit from Metformin upon discharge will start today. 3. b/l LE edema - stable -Worsened today, vascular surgeon consulted 4. Asthma - stable - PRN Nebs 5. BPH - Flomax continued 6. Elevated BP - improved with Lisinopril 7. Disposition -Infectious disease and vascular surgeon consultation pending MALA DUARTE Aug 14, 2018 13:42
[2018-08-14 14:33] VITALS: BP 129/57; PULSE 67; RESP 18
--- NOTE | 2018-08-14 16:58 | CONS ---
DATE OF ADMISSION: 08/12/2018 DATE OF CONSULTATION: 08/14/2018 TYPE OF CONSULTATION: Infectious disease. REASON FOR CONSULTATION: Antibiotic management. HISTORY OF PRESENT ILLNESS: Cory Lucas is a 67-year-old male, who comes in with right leg wound on 4 days' duration. PAST PROBLEMS INCLUDE: 1. Hypertension. 2. Asthma. Acutely, the patient presents with bilateral leg wounds, which started 2 weeks ago, but has been wors ening and he has been scratching them. He has had pain and is trying Advil. He has no fevers. The wounds are draining and oozing. He was started on Keflex without any positive results. PAST MEDICAL HISTORY: Operations as outlined. FAMILY HISTORY: Noncontributory except for the fact that there is a family history of diabetes. SOCIAL HISTORY: He does not smoke, drink or abuse drugs. ALLERGIES: NONE TO PENICILLIN, SULFA OR FOODS. MEDICATIONS: Per chart. REVIEW OF SYSTEMS: Noncontributory. ANCILLARY LABORATORY DATA: On admission, white count 10.9 with 66% polys, H and H of 13.1 and 40.2, platelet count 369,000. BUN and creatinine 14/0.86. IMPRESSION AND PLAN: The patient has bilateral lower extremity pain, most likely from open sores fro m access scratching. The patient was started on Zosyn, initially on Unasyn. IMAGING STUDIES: Chest x-ray: Mildly diminished lung volumes, otherwise no acute findings. Arteria l study: Not significant and no evidence of DVTs. PHYSICAL EXAMINATION: GENERAL: The patient is lying in bed in no acute distress. VITAL SIGNS: Stable. He is afebrile. SKIN: Without generalized rash. HEENT: Within normal limits. NECK: Supple. LYMPH NODES: None palpable. CHEST: Decreased breath sounds at the bases. HEART: Without murmur or gallop. ABDOMEN: Soft, nontender, without organosplenomegaly or masses. EXTREMITIES: Bilateral leg wounds are bandaged and oozing. RECTAL AND GENITAL: Deferred. NEUROLOGIC: No focal neurological abnormalities. He has bilateral lower extremity pain, mild improv ement, but worsening today. He is on empiric antibiotic therapy. We will continue him on current erapy. Wound consultation was placed and hopefully wound cultures will be done. I will dictate my f indings to the hospitalist. Dictated By: BREANNA SHERWOOD MD, JD/NTS Conf#: [id number] [facility]#: [id number] CC: MALA DUARTE MD; FRIDA PETERSON MD;*End*
[2018-08-14] MEDS: metFORMIN 500 MG TAB PO SCH (17:44)
[2018-08-14] MEDS: TAMSULOSIN (SR) 0.4 MG CAP PO SCH (20:18)
[2018-08-14] MEDS ORDERED: AMOXICILLIN/CLAV 875 MG TAB PO SCH (21:00)
[2018-08-14] MEDS ORDERED: DOXYCYCLINE 100 MG TAB PO SCH (21:00)
[2018-08-14 21:05] VITALS: BP 125/74; PULSE 78; RESP 18
[2018-08-14] MEDS: LIDOCAINE 2% VISC 15 ML CUP PO PRN (22:21)
[2018-08-15] MEDS: PIPER-TAZO 3.375 GM IV (PMX) 100 ML IVPB SCH ×4 (01:29→20:45)
[2018-08-15] MEDS: HYDROCODONE/APAP (5/325) TAB PO PRN ×4 (01:31→20:45)
[2018-08-15 02:14] VITALS: BP 131/62; PULSE 74; RESP 18
[2018-08-15] MEDS: LIDOCAINE 2% VISC 15 ML CUP PO PRN (06:11)
[2018-08-15 07:40] VITALS: BP 116/55; PULSE 76; RESP 18
[2018-08-15] MEDS: INSULIN ASPART [NOVOLOG] 3 ML PEN SC SCH ×4 (08:00→20:46)
[2018-08-15] MEDS: FAMOTIDINE 20 MG TAB PO SCH ×2 (08:10→20:46)
[2018-08-15] MEDS: metFORMIN 500 MG TAB PO SCH ×2 (08:10→17:50)
[2018-08-15] MEDS: ENOXAPARIN 40 MG/0.4 ML SYG SC SCH (08:12)
[2018-08-15] MEDS: MUPIROCIN 2% 22 GM OINT TOP SCH ×2 (08:13→20:47)
[2018-08-15] MEDS: LISINOPRIL 5 MG TAB PO SCH (08:26)
[2018-08-15] MEDS: morphine 2 MG INJ IV PRN (09:53)
[2018-08-15 14:39] VITALS: BP 119/60; PULSE 73; RESP 18
--- NOTE | 2018-08-15 14:43 | CONS ---
Assessment/Plan Assessment/Plan Hospital Course (Demo Recall) Patient is alert ambulating with PT looks comfortable no fevers overnight. WBC 9.6 no shift no bands BUN 15 creatinine 1.06 Antimicrobials: Zosyn Physical examination well-developed elderly man who is alert in no distress head atraumatic normocephalic neck is supple chest rise symmetrical breath sounds clear heart S1-S2 abdomen soft bowel sounds present extremities with bilateral lower extremities dressings intact Assessment: 1. Bilateral lower extremities chronic wounds. Plan: We will try to obtain wound cultures, add Bactrim Consultation Date/Type/Reason Admit Date/Time Aug 12, 2018 at 08:59 Initial Consult Date Type of Consult id Date/Time of Note DATE: 08/15/18 TIME: 14:42 Exam/Review of Systems Exam Vitals Vital Signs Date Temp Pulse Resp B/P (MAP) Pulse Ox O2 O2 Flow FiO2 Time Delivery Rate 08/15/18 98.6 73 18 119/60 95 14:39 (79) 08/15/18 21 02:08 08/14/18 Room Air 14:33 Intake and Output 08/14/18 08/14/18 08/15/18 1515:00 23:00 07:00 IntakeIntake Total 460 ml 820 ml 100 ml OutputOutput Total 800 ml 600 ml 650 ml BalanceBalance -340 ml 220 ml -550 ml Results Result Diagram: 08/15/18 0530 08/15/18 0530 Results 24hrs Laboratory Tests Test 08/14/18 17:39 08/14/18 20:24 08/15/18 05:30 08/15/18 08:08 Bedside Glucose 155 122 126 White Blood Count 9.6 Red Blood Count 4.07 L Hemoglobin 12.0 L Hematocrit 36.9 L Mean Corpuscular Volume 90.7 Mean Corpuscular 29.5 Hemoglobin Mean Corpuscular 32.5 Hemoglobin Concent Red Cell Distribution 12.4 Width Platelet Count 360 Mean Platelet Volume 9.3 Immature Granulocytes % 0.500 H Neutrophils % 64.9 Lymphocytes % 23.7 Monocytes % 7.3 Eosinophils % 3.2 Basophils % 0.4 Nucleated Red Blood 0.0 Cells % Immature Granulocytes # 0.050 H Neutrophils # 6.2 Lymphocytes # 2.3 Monocytes # 0.7 Eosinophils # 0.3 Basophils # 0.0 Nucleated Red Blood 0.0 Cells # Sodium Level 139 Potassium Level 3.9 Chloride Level 105 Carbon Dioxide Level 27 Anion Gap 7 Blood Urea Nitrogen 15 Creatinine 1.06 Est Glomerular Filtrat > 60 Rate mL/min Glucose Level 140 Calcium Level 9.2 Phosphorus Level 4.1 Magnesium Level 1.8 Test 08/15/18 13:05 Bedside Glucose 109 Medications Medication Current Medications Oxycodone HCl (Roxicodone) 5 mg Q6H PRN PO PAIN; Start 08/12/18 at 09:30 Tamsulosin HCl (Flomax) 0.4 mg QPM PO Last administered on 08/14/18 20:18; Ad min Dose 0.4 MG; Start 08/12/18 at 21:00 IV Flush (NS 3 ml) 3 ml PER PROTOCOL IV ; Start 08/12/18 at 09:30 Ondansetron HCl (Zofran Inj) 4 mg Q6H PRN IV NAUSEA/VOMITING Last administered on 08/13/18at 20:59; Admin Dose 4 MG; Start 08/12/18 at 09:30 Acetaminophen (Tylenol Tab) 650 mg Q6H PRN PO .PAIN 1-3 OR TEMP; Start 08/12/18 at 09:30 Morphine Sulfate (morphine) 2 mg Q4H PRN IV .SEVERE PAIN 7-10 Last administered on 08/15/18at 09:53; Admin Dose 2 MG; Start 08/12/18 at 09:30 Docusate Sodium (Colace) 100 mg Q12H PRN PO .CONSTIPATION; Start 08/12/18 at 09:30 Magnesium Hydroxide (Milk Of Mag) 30 ml DAILY PRN PO .CONSTIPATION; Start 08/12/18 at 09:30 Famotidine (Pepcid) 20 mg Q12 PO Last administered on 08/15/18at 08:10; Admin Dose 20 MG; Start 08/12/18 at 21:00 Enoxaparin Sodium (Lovenox) 40 mg DAILY SC Last administered on 08/15/18at 08:12; Admin Dose 40 MG; Start 08/13/18 at 09:00 Hydralazine HCl (Apresoline) 10 mg Q4H PRN IV SBP >170 Last administered on 08/12/18at 12:19; Admin Dose 10 MG; Start 08/12/18 at 09:30 Insulin Aspart (Novolog Insulin Pen) NOVOLOG *MILD* ALGORITHM WITH MEALS BEDTIME SC Last administered on 08/14/18 17:43; Admin Dose 1 UNIT; Start 08/12/18 at 12:00 Acetaminophen/ Hydrocodone Bitart ([place] (5/325)) 1 tab Q4H PRN PO MODERATE PAIN LEVEL 4-6 Last administered on 08/15/18at 06:11; Admin Dose 1 TAB; Start 08/12/18 at 10:30 Mupirocin (Bactroban) 1 applic BID TOP Last administered on 08/15/18 08:13; Admin Dose 1 APPLIC; Start 08/12/18 at 10:30 Diphenhydramine HCl (Benadryl) 25 mg Q6H PRN IV itching; Start 08/12/18 at 10:30 Miscellaneous Information 1 ea NOTE XX ; Start 08/12/18 at 11:00 Glucose (Glutose) 15 gm Q15M PRN PO DECREASED GLUCOSE; Start 08/12/18 at 11:00 Glucose (Glutose) 22.5 gm Q15M PRN PO DECREASED GLUCOSE; Start 08/12/18 at 11:00 Dextrose (D50w Syringe) 25 ml Q15M PRN IV DECREASED GLUCOSE; Start 08/12/18 at 11:00 Dextrose (D50w Syringe) 50 ml Q15M PRN IV DECREASED GLUCOSE; Start 08/12/18 at 11:00 Glucagon (Glucagen) 1 mg Q15M PRN IM DECREASED GLUCOSE; Start 08/12/18 at 11:00 Glucose (Glutose) 15 gm Q15M PRN BUCCAL DECREASED GLUCOSE; Start 08/12/18 at 11:00 Albuterol (Proventil 0.083% (Neb)) 1.25 mg Q4H PRN NEB WHEEZING AND SOB Last administered on 08/14/18at 12:49; Admin Dose 1.25 MG; Start 08/12/18 at 17:30 Metformin HCl (Glucophage) 500 mg BID WITH MEALS PO Last administered on 08/15/18 08:10; Admin Dose 500 MG; Start 08/14/18 at 18:00 Piperacillin Sod/ Tazobactam Sod 100 ml @ 200 mls/hr Q6H IVPB Last administered on 08/15/18at 13:36; Admin Dose 200 MLS/HR; Start 08/14/18 at 14:00 Lidocaine (Xylocaine (Viscous)) 15 ml Q6 PRN PO TOOTHACHE Last administered on 08/15/18at 06:11; Admin Dose 15 ML; Start 08/14/18 at 21:00 Hydrochlorothiazide (Hydrochlorothiazide) 12.5 mg DAILY PO ; Start 08/16/18 at 09:00 EMIGDIO ROBLES NP Aug 15, 2018 14:43
--- NOTE | 2018-08-15 15:28 | PN ---
Date/Time of Note Date/Time of Note DATE: 08/15/18 TIME: 15:26 Objective Vitals Vital Signs Date Temp Pulse Resp B/P (MAP) Pulse Ox O2 O2 Flow FiO2 Time Delivery Rate 08/15/18 98.6 73 18 119/60 95 14:39 (79) 08/15/18 21 02:08 08/14/18 Room Air 14:33 Intake and Output 08/14/18 08/14/18 08/15/18 1515:00 23:00 07:00 IntakeIntake Total 460 ml 820 ml 100 ml OutputOutput Total 800 ml 600 ml 650 ml BalanceBalance -340 ml 220 ml -550 ml Results Result Diagram: 08/15/18 0530 08/15/18 0530 Medications Medications Current Medications Oxycodone HCl (Roxicodone) 5 mg Q6H PRN PO PAIN; Start 08/12/18 at 09:30 Tamsulosin HCl (Flomax) 0.4 mg QPM PO Last administered on 08/14/18at 20:18; Admin Dose 0.4 MG; Start 08/12/18 at 21:00 IV Flush (NS 3 ml) 3 ml PER PROTOCOL IV ; Start 08/12/18 at 09:30 Ondansetron HCl (Zofran Inj) 4 mg Q6H PRN IV NAUSEA/VOMITING Last administered on 08/13/18at 20:59; Admin Dose 4 MG; Start 08/12/18 at 09:30 Acetaminophen (Tylenol Tab) 650 mg Q6H PRN PO .PAIN 1-3 OR TEMP; Start 08/12/18 at 09:30 Morphine Sulfate (morphine) 2 mg Q4H PRN IV .SEVERE PAIN 7-10 Last administered on 08/15/18at 09:53; Admin Dose 2 MG; Start 08/12/18 at 09:30 Docusate Sodium (Colace) 100 mg Q12H PRN PO .CONSTIPATION; Start 08/12/18 at 09:30 Magnesium Hydroxide (Milk Of Mag) 30 ml DAILY PRN PO .CONSTIPATION; Start 08/12/18 at 09:30 Famotidine (Pepcid) 20 mg Q12 PO Last administered on 08/15/18at 08:10; Admin Dose 20 MG; Start 08/12/18 at 21:00 Enoxaparin Sodium (Lovenox) 40 mg DAILY SC Last administered on 08/15/18 08:12; Admin Dose 40 MG; Start 08/13/18 at 09:00 Hydralazine HCl (Apresoline) 10 mg Q4H PRN IV SBP >170 Last administered on 08/12/18at 12:19; Admin Dose 10 MG; Start 08/12/18 at 09:30 Insulin Aspart (Novolog Insulin Pen) NOVOLOG *MILD* ALGORITHM WITH MEALS BEDTIME SC Last administered on 08/14/18at 17:43; Admin Dose 1 UNIT; Start 08/12/18 at 12:00 Acetaminophen/ Hydrocodone Bitart ([place] (5/325)) 1 tab Q4H PRN PO MODERATE PAIN LEVEL 4-6 Last administered on 08/15/18 06:11; Admin Dose 1 TAB; Start 08/12/18 at 10:30 Mupirocin (Bactroban) 1 applic BID TOP Last administered on 08/15/18 08:13; Admin Dose 1 APPLIC; Start 08/12/18 at 10:30 Diphenhydramine HCl (Benadryl) 25 mg Q6H PRN IV itching; Start 08/12/18 at 10:30 Miscellaneous Information 1 ea NOTE XX ; Start 08/12/18 at 11:00 Glucose (Glutose) 15 gm Q15M PRN PO DECREASED GLUCOSE; Start 08/12/18 at 11:00 Glucose (Glutose) 22.5 gm Q15M PRN PO DECREASED GLUCOSE; Start 08/12/18 at 11:00 Dextrose (D50w Syringe) 25 ml Q15M PRN IV DECREASED GLUCOSE; Start 08/12/18 at 11:00 Dextrose (D50w Syringe) 50 ml Q15M PRN IV DECREASED GLUCOSE; Start 08/12/18 at 11:00 Glucagon (Glucagen) 1 mg Q15M PRN IM DECREASED GLUCOSE; Start 08/12/18 at 11:00 Glucose (Glutose) 15 gm Q15M PRN BUCCAL DECREASED GLUCOSE; Start 08/12/18 at 11:00 Albuterol (Proventil 0.083% (Neb)) 1.25 mg Q4H PRN NEB WHEEZING AND SOB Last administered on 08/14/18at 12:49; Admin Dose 1.25 MG; Start 08/12/18 at 17:30 Metformin HCl (Glucophage) 500 mg BID WITH MEALS PO Last administered on 08/15/18at 08:10; Admin Dose 500 MG; Start 08/14/18 at 18:00 Piperacillin Sod/ Tazobactam Sod 100 ml @ 200 mls/hr Q6H IVPB Last administered on 08/15/18at 13:36; Admin Dose 200 MLS/HR; Start 08/14/18 at 14:00 Lidocaine (Xylocaine (Viscous)) 15 ml Q6 PRN PO TOOTHACHE Last administered on 08/15/18at 06:11; Admin Dose 15 ML; Start 08/14/18 at 21:00 Hydrochlorothiazide (Hydrochlorothiazide) 12.5 mg DAILY PO ; Start 08/16/18 at 09:00 Trimethoprim/ Sulfamethoxazole (Bactrim (Ds)) 1 tab BID PO ; Start 08/15/18 at 21:00 VTE Prophylaxis Risk score (from [facility] [place] risk: 4 SCD applied (from [facility] [place] No SCD contraindication: other Lines/Catheters IV Catheter Type: Mckeon in Place: No Assessment/Plan Hospital Course Subjective Patient doing well, no new overnight events Objective Physical exam General: Patient is laying in bed and answers questions appropriately Mentation: Patient is alert and oriented 4, Head: Normocephalic atraumatic Eyes: EOMI, pupils reactive to light Neck: Supple, nontender, midline Respiratory: Clear to auscultation bilaterally Cardiovascular: regular rate, no obvious murmurs Gastrointestinal: non-tender to palpation, bowel sounds heard. Neurological: Moves all extremities spontaneously Skin: Bilateral leg wounds bandaged, Assessment/Plan 1. Bilateral lower extremity pain-mild improvement but worsening today - pain control - continue local wound care - wound consultation placed, vascular surgeon also saw patient, recommends Unna boot and wound care - continue empiric antibiotics, infectious disease changed to Zosyn and Bactrim, anticipate discharge on Bactrim and Keflex -Overt infection is questionable however patient is at high risk of secondary infection given his likely chronic venous stasis and open leg wounds. Will need to continue IV antibiotic for now, infectious disease consulted - imaging studies negative for DVT 2. New onset diabetes mellitus - A1c noted - lifestyle modifications discussed - Diabetic education consulted for teaching - patient wound benefit from Metformin upon discharge will start inpatient 3. b/l LE edema -Improving daily -Echo within normal limits, unlikely heart source, vascular surgeon also agrees likely venous insufficiency 4. Asthma - stable - PRN Nebs 5. BPH - Flomax continued 6. Elevated BP - improved with Lisinopril, however patient will likely benefit from a mild diuretic given his lower extremity swelling issues, will start hydrochlorothiazide 7. Disposition -Follow-up wound culture, anticipate DC with Bactrim and Keflex highly likely in a day or 2. MALA DUARTE Aug 15, 2018 15:28
--- NOTE | 2018-08-15 15:53 | CONS ---
DATE OF ADMISSION: 08/12/2018 DATE OF CONSULTATION: 08/15/2018 TYPE OF CONSULTATION: Vascular. REASON FOR CONSULTATION: Bilateral calf ulcers. HISTORY OF PRESENT ILLNESS: This is a 67-year-old gentleman who presented with weeping wounds in bot h legs. He says he thinks he is diabetic but he is not taking medication for it. He says it started about 2 to 3 weeks ago. 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 He was not going home. He is slee ping on the site. He was standing for long periods of time and he developed some pelvic dermatitis i n the legs. He scratched them and developed multiple wounds on them. They become superinfected and he brought himself to the emergency room at [facility]. He has been getting wound care and antibiotics. He has been found to be diabetic and has been getting some silver alginate applied to t he wounds and some IV antibiotics. The wounds are improved. Edema is mostly resolved as well with b ed rest and leg elevation. PAST MEDICAL HISTORY: Significant for diabetes. It is new in onset. He has not been treated for it in the past. He has bilateral lower extremity edema. He denies any history of varicose veins. He has a history of asthma, BPH, hypertension. MEDICATIONS: Consist of: 1. Hydrochlorothiazide. 2. Doxycycline. 3. Augmentin. 4. Metformin. 5. Zosyn. 6. Lovenox. 7. Tamsulosin. 8. Pepcid. 9. Albuterol. 10. Lisinopril. 11. Insulin. 12. Bactroban ointment. PAST SURGICAL HISTORY: He denies any surgery in the past. SOCIAL HISTORY: He is a nonsmoker. He does not drink or use any illicit drugs. He has been working in construction. He has not used compression stockings in the past. He has not really noted there is a lot of swelling previously. FAMILY HISTORY: Noncontributory. Mother at [facility] from cardiac issues. REVIEW OF SYSTEMS: He currently denies any chest pain, shortness of breath, nausea, vomiting, diarrh ea. No fevers, no chills, no recent weight gain or weight loss. Only complaint though is pain in th e legs. PHYSICAL EXAMINATION GENERAL: He is an elderly -[place] gentleman. He is in no acute distress. He speaks Englis h fluently. VITAL SIGNS: He has been afebrile. His blood pressure is 116/55, heart rate 76, respiratory rate 18 , he is 96% sat on room air. PERIPHERAL VASCULAR: He has 2+ carotid, radial and brachial pulses bilaterally. LUNGS: Clear. HEART: Regular rate and rhythm. ABDOMEN: Soft, nontender, nondistended. EXTREMITIES: He has 2+ femoral and popliteal pulses bilaterally. There are 1 to 2+ DP and PT pulses in both lower extremities. He had multiple excoriations and actually fairly healthy looking ulcers over both calves just about multiple areas, but they are all granulating and look clean. He does hav e evidence of chronic venous insufficiency and will get hyperpigmentation and some lipodermatoscleros is. I do not see much edema right now, but he has been in bedrest essentially for several days. DIAGNOSTIC DATA: He had arterial and venous studies done. The arterial study shows basically some t ibial disease bilaterally. He got monophasic tibial flow worse on the right than the left, but no re al evidence of severe stenosis anywhere. The venous scan was negative. There is no mention of reflu x. He also has the chest x-ray when he came in that was normal essentially. LABORATORY VALUES: Show white count is normal. Creatinine is normal. His other hematology workup h as all been essentially normal. IMPRESSION: Bilateral lower extremity ulcerations likely due to edema and venous hypertension. He h as been getting antibiotics and wound care. At this point, he is afebrile. His white count is david l. The wounds could just be placed into Unna boots and I will follow him up in the wound center. He can go home with maybe some p.o. antibiotics for a little while and I could see him later in the wee k in the APC. Dictated By: ANNAMARIE LOWRY/JOHN Conf#: [id number] DID#: [id number] CC: MALA DUARTE MD; FRIDA PETERSON MD; BREANNA SHERWOOD MD;*End*
[2018-08-15 19:27] VITALS: BP 145/83; PULSE 75; RESP 18
[2018-08-15] MEDS: TRIMETHOPRIM/SULFAMETHOX (DS) TAB PO SCH (20:45)
[2018-08-15] MEDS: TAMSULOSIN (SR) 0.4 MG CAP PO SCH (20:46)
[2018-08-15] MEDS: ALBUTEROL 0.083% (NEB) 2.5 MG/3 ML AMP NEB PRN (21:19)
[2018-08-16 01:02] VITALS: BP 131/71; PULSE 72; RESP 18
[2018-08-16] MEDS: PIPER-TAZO 3.375 GM IV (PMX) 100 ML IVPB SCH ×4 (02:05→21:10)
[2018-08-16] MEDS: ALBUTEROL 0.083% (NEB) 2.5 MG/3 ML AMP NEB PRN ×2 (03:24→21:47)
[2018-08-16 07:22] VITALS: BP 149/76; PULSE 72; RESP 18
[2018-08-16] MEDS: INSULIN ASPART [NOVOLOG] 3 ML PEN SC SCH ×4 (08:00→21:00)
[2018-08-16] MEDS: MUPIROCIN 2% 22 GM OINT TOP SCH ×2 (08:41→21:17)
[2018-08-16] MEDS: TRIMETHOPRIM/SULFAMETHOX (DS) TAB PO SCH ×2 (08:41→21:12)
[2018-08-16] MEDS: FAMOTIDINE 20 MG TAB PO SCH ×2 (08:41→21:13)
[2018-08-16] MEDS: metFORMIN 500 MG TAB PO SCH ×2 (08:42→18:02)
[2018-08-16] MEDS: HYDROCHLOROTHIAZIDE 12.5 MG CAP PO SCH (08:42)
[2018-08-16] MEDS: ENOXAPARIN 40 MG/0.4 ML SYG SC SCH (08:49)
[2018-08-16 14:20] VITALS: BP 120/57; PULSE 75; RESP 18
--- NOTE | 2018-08-16 14:33 | PN ---
Date/Time of Note Date/Time of Note DATE: 08/16/18 TIME: 14:30 Objective Vitals Vital Signs Date Temp Pulse Resp B/P (MAP) Pulse Ox O2 O2 Flow FiO2 Time Delivery Rate 08/16/18 98.2 75 18 120/57 96 Room Air 14:20 (78) 08/16/18 21 03:24 Intake and Output 08/15/18 08/15/18 08/16/18 1515:00 23:00 07:00 IntakeIntake Total 200 ml 1100 ml 100 ml OutputOutput Total 400 ml 600 ml 800 ml BalanceBalance -200 ml 500 ml -700 ml Results Result Diagram: 08/15/1852908/15/18 0530 Medications Medications Current Medications Oxycodone HCl (Roxicodone) 5 mg Q6H PRN PO PAIN; Start 08/12/18 at 09:30 Tamsulosin HCl (Flomax) 0.4 mg QPM PO Last administered on 08/15/18at 20:46; Admin Dose 0.4 MG; Start 08/12/18 at 21:00 IV Flush (NS 3 ml) 3 ml PER PROTOCOL IV ; Start 08/12/18 at 09:30 Ondansetron HCl (Zofran Inj) 4 mg Q6H PRN IV NAUSEA/VOMITING Last administered on 08/13/18at 20:59; Admin Dose 4 MG; Start 08/12/18 at 09:30 Acetaminophen (Tylenol Tab) 650 mg Q6H PRN PO .PAIN 1-3 OR TEMP; Start 08/12/18 at 09:30 Morphine Sulfate (morphine) 2 mg Q4H PRN IV .SEVERE PAIN 7-10 Last administered on 08/15/18at 09:53; Admin Dose 2 MG; Start 08/12/18 at 09:30 Docusate Sodium (Colace) 100 mg Q12H PRN PO .CONSTIPATION; Start 08/12/18 at 09:30 Magnesium Hydroxide (Milk Of Mag) 30 ml DAILY PRN PO .CONSTIPATION; Start 08/12/18 at 09:30 Famotidine (Pepcid) 20 mg Q12 PO Last administered on 08/16/18at 08:41; Admin Dose 20 MG; Start 08/12/18 at 21:00 Enoxaparin Sodium (Lovenox) 40 mg DAILY SC Last administered on 08/16/18 08:49; Admin Dose 40 MG; Start 08/13/18 at 09:00 Hydralazine HCl (Apresoline) 10 mg Q4H PRN IV SBP >170 Last administered on 08/12/18at 12:19; Admin Dose 10 MG; Start 08/12/18 at 09:30 Insulin Aspart (Novolog Insulin Pen) NOVOLOG *MILD* ALGORITHM WITH MEALS BEDTIME SC Last administered on 08/14/18at 17:43; Admin Dose 1 UNIT; Start 08/12/18 at 12:00 Acetaminophen/ Hydrocodone Bitart ([place] (5/325)) 1 tab Q4H PRN PO MODERATE PAIN LEVEL 4-6 Last administered on 08/15/18 20:45; Admin Dose 1 TAB; Start 08/12/18 at 10:30 Mupirocin (Bactroban) 1 applic BID TOP Last administered on 08/16/18 08:41; Admin Dose 1 APPLIC; Start 08/12/18 at 10:30 Diphenhydramine HCl (Benadryl) 25 mg Q6H PRN IV itching; Start 08/12/18 at 10:30 Miscellaneous Information 1 ea NOTE XX ; Start 08/12/18 at 11:00 Glucose (Glutose) 15 gm Q15M PRN PO DECREASED GLUCOSE; Start 08/12/18 at 11:00 Glucose (Glutose) 22.5 gm Q15M PRN PO DECREASED GLUCOSE; Start 08/12/18 at 11:00 Dextrose (D50w Syringe) 25 ml Q15M PRN IV DECREASED GLUCOSE; Start 08/12/18 at 11:00 Dextrose (D50w Syringe) 50 ml Q15M PRN IV DECREASED GLUCOSE; Start 08/12/18 at 11:00 Glucagon (Glucagen) 1 mg Q15M PRN IM DECREASED GLUCOSE; Start 08/12/18 at 11:00 Glucose (Glutose) 15 gm Q15M PRN BUCCAL DECREASED GLUCOSE; Start 08/12/18 at 11:00 Albuterol (Proventil 0.083% (Neb)) 1.25 mg Q4H PRN NEB WHEEZING AND SOB Last administered on 08/16/18at 03:24; Admin Dose 1.25 MG; Start 08/12/18 at 17:30 Metformin HCl (Glucophage) 500 mg BID WITH MEALS PO Last administered on 9at 08:42; Admin Dose 500 MG; Start 08/14/18 at 18:00 Piperacillin Sod/ Tazobactam Sod 100 ml @ 200 mls/hr Q6H IVPB Last administered on 08/16/18at 13:52; Admin Dose 200 MLS/HR; Start 08/14/18 at 14:00 Lidocaine (Xylocaine (Viscous)) 15 ml Q6 PRN PO TOOTHACHE Last administered on 08/15/18at 06:11; Admin Dose 15 ML; Start 08/14/18 at 21:00 Hydrochlorothiazide (Hydrochlorothiazide) 12.5 mg DAILY PO Last administered on 08/16/18at 08:42; Admin Dose 12.5 MG; Start 08/16/18 at 09:00 Trimethoprim/ Sulfamethoxazole (Bactrim (Ds)) 1 tab BID PO Last administered on 08/16/18at 08:41; Admin Dose 1 TAB; Start 08/15/18 at 21:00 VTE Prophylaxis Risk [place]from [facility] [place] risk: 4 SCD applied (from [facility] [place] No SCD contraindication: other Lines/Catheters IV Catheter Type: Mckeon in Place: No Assessment/Plan Hospital Course Subjective Patient doing well, no new overnight events Objective Physical exam General: Patient is laying in bed and answers questions appropriately Mentation: Patient is alert and oriented 4, Head: Normocephalic atraumatic Eyes: EOMI, pupils reactive to light Neck: Supple, nontender, midline Respiratory: Clear to auscultation bilaterally Cardiovascular: regular rate, no obvious murmurs Gastrointestinal: non-tender to palpation, bowel sounds heard. Neurological: Moves all extremities spontaneously Skin: Bilateral leg wounds bandaged, Assessment/Plan 1. Bilateral lower extremity pain-mild improvement but worsening today - pain control - continue local wound care - wound consultation placed, vascular surgeon also saw patient, recommends Unna boot and wound care - continue empiric antibiotics, infectious disease changed to Zosyn and Bactrim, anticipate discharge on Bactrim and Keflex -Overt infection is questionable however patient is at high risk of secondary infection given his likely chronic venous stasis and open leg wounds. Will need to continue IV antibiotic for now, infectious disease consulted - imaging studies negative for DVT 2. New onset diabetes mellitus - A1c noted - lifestyle modifications discussed - Diabetic education consulted for teaching - patient wound benefit from Metformin upon discharge will start inpatient 3. b/l LE edema -Improving daily -Echo within normal limits, unlikely heart source, vascular surgeon also agrees likely venous insufficiency 4. Asthma - stable - PRN Nebs 5. BPH - Flomax continued 6. Elevated BP - improved with Lisinopril, however patient will likely benefit from a mild diuretic given his lower extremity swelling issues, will start hydrochlorothiazide 7. Disposition -will look for placement. likely need SNF given wounds and no home. social work also on board. MALA DUARTE Aug 16, 2018 14:33
--- NOTE | 2018-08-16 16:28 | CONS ---
Assessment/Plan Assessment/Plan Hospital Course (Demo Recall) Patient is alert, feels good, no fevers, wound cx pending Antimicrobials: Zosyn Bactrim Physical examination well-developed elderly man who is alert in no distress head atraumatic normocephalic neck is supple chest rise symmetrical breath sounds clear heart S1-S2 abdomen soft bowel sounds present extremities with bilateral lower extremities dressings intact Assessment: 1. Bilateral lower extremities chronic wounds. Plan: Stable, pending wound cx, anticipate dc on oral Doxycycline and Keflex Consultation Date/Type/Reason Admit Date/Time Aug 12, 2018 at 08:59 Initial Consult Date Type of Consult id Date/Time of Note DATE: 08/16/18 TIME: 16:26 Exam/Review of Systems Exam Vitals Vital Signs Date Temp Pulse Resp B/P (MAP) Pulse Ox O2 O2 Flow FiO2 Time Delivery Rate 08/16/18 98.2 75 18 120/57 96 Room Air 14:20 (78) 08/16/18 21 03:24 Intake and Output 08/15/18 08/15/18 08/16/18 1515:00 23:00 07:00 IntakeIntake Total 200 ml 1100 ml 100 ml OutputOutput Total 400 ml 600 ml 800 ml BalanceBalance -200 ml 500 ml -700 ml Results Result Diagram: 08/15/18 0530 08/15/18 0530 Results 24hrs Laboratory Tests Test 08/15/18 17:46 08/15/18 20:44 08/16/18 08:47 08/16/18 13:03 Bedside Glucose 116 108 114 111 Medications Medication Current Medications Oxycodone HCl (Roxicodone) 5 mg Q6H PRN PO PAIN; Start 08/12/18 at 09:30 Tamsulosin HCl (Flomax) 0.4 mg QPM PO Last administered on 08/15/18at 20:46; Admin Dose 0.4 MG; Start 08/12/18 at 21:00 IV Flush (NS 3 ml) 3 ml PER PROTOCOL IV ; Start 08/12/18 at 09:30 Ondansetron HCl (Zofran Inj) 4 mg Q6H PRN IV NAUSEA/VOMITING Last administered on 08/13/18at 20:59; Admin Dose 4 MG; Start 08/12/18 at 09:30 Acetaminophen (Tylenol Tab) 650 mg Q6H PRN PO .PAIN 1-3 OR TEMP; Start 08/12/18 at 09:30 Morphine Sulfate (morphine) 2 mg Q4H PRN IV .SEVERE PAIN 7-10 Last administered on 08/15/18 09:53; Admin Dose 2 MG; Start 08/12/18 at 09:30 Docusate Sodium (Colace) 100 mg Q12H PRN PO .CONSTIPATION; Start 08/12/18 at 09:30 Magnesium Hydroxide (Milk Of Mag) 30 ml DAILY PRN PO .CONSTIPATION; Start 08/12/18 at 09:30 Famotidine (Pepcid) 20 mg Q12 PO Last administered on 08/16/18 08:41; Admin Dose 20 MG; Start 08/12/18 at 21:00 Enoxaparin Sodium (Lovenox) 40 mg DAILY SC Last administered on 08/16/18 08:49; Admin Dose 40 MG; Start 08/13/18 at 09:00 Hydralazine HCl (Apresoline) 10 mg Q4H PRN IV SBP >170 Last administered on 08/12/18 12:19; Admin Dose 10 MG; Start 08/12/18 at 09:30 Insulin Aspart (Novolog Insulin Pen) NOVOLOG *MILD* ALGORITHM WITH MEALS BEDTIME SC Last administered on 08/14/18 17:43; Admin Dose 1 UNIT; Start 08/12/18 at 12:00 Acetaminophen/ Hydrocodone Bitart ([place] (5/325)) 1 tab Q4H PRN PO MODERATE PAIN LEVEL 4-6 Last administered on 08/15/18 20:45; Admin Dose 1 TAB; Start 08/12/18 at 10:30 Mupirocin (Bactroban) 1 applic BID TOP Last administered on 08/16/18 08:41; Admin Dose 1 APPLIC; Start 08/12/18 at 10:30 Diphenhydramine HCl (Benadryl) 25 mg Q6H PRN IV itching; Start 08/12/18 at 10:30 Miscellaneous Information 1 ea NOTE XX ; Start 08/12/18 at 11:00 Glucose (Glutose) 15 gm Q15M PRN PO DECREASED GLUCOSE; Start 08/12/18 at 11:00 Glucose (Glutose) 22.5 gm Q15M PRN PO DECREASED GLUCOSE; Start 08/12/18 at 11:00 Dextrose (D50w Syringe) 25 ml Q15M PRN IV DECREASED GLUCOSE; Start 08/12/18 at 11:00 Dextrose (D50w Syringe) 50 ml Q15M PRN IV DECREASED GLUCOSE; Start 08/12/18 at 11:00 Glucagon (Glucagen) 1 mg Q15M PRN IM DECREASED GLUCOSE; Start 08/12/18 at 11:00 Glucose (Glutose) 15 gm Q15M PRN BUCCAL DECREASED GLUCOSE; Start 08/12/18 at 11:00 Albuterol (Proventil 0.083% (Neb)) 1.25 mg Q4H PRN NEB WHEEZING AND SOB Last administered on 08/16/18 03:24; Admin Dose 1.25 MG; Start 08/12/18 at 17:30 Metformin HCl (Glucophage) 500 mg BID WITH MEALS PO Last administered on 08/16/18 08:42; Admin Dose 500 MG; Start 08/14/18 at 18:00 Piperacillin Sod/ Tazobactam Sod 100 ml @ 200 mls/hr Q6H IVPB Last administer ed on 08/16/18 13:52; Admin Dose 200 MLS/HR; Start 08/14/18 at 14:00 Lidocaine (Xylocaine (Viscous)) 15 ml Q6 PRN PO TOOTHACHE Last administered on 08/15/18 06:11; Admin Dose 15 ML; Start 08/14/18 at 21:00 Hydrochlorothiazide (Hydrochlorothiazide) 12.5 mg DAILY PO Last administered on 08/16/18 08:42; Admin Dose 12.5 MG; Start 08/16/18 at 09:00 Trimethoprim/ Sulfamethoxazole (Bactrim (Ds)) 1 tab BID PO Last administered on 08/16/18 08:41; Admin Dose 1 TAB; Start 08/15/18 at 21:00 EMIGDIO ROBLES NP Aug 16, 2018 16:28
[2018-08-16 20:00] VITALS: BP 148/69; PULSE 70; RESP 20
[2018-08-16] MEDS: TAMSULOSIN (SR) 0.4 MG CAP PO SCH (21:12)
[2018-08-17 02:00] VITALS: BP 139/66; PULSE 70; RESP 18
[2018-08-17] MEDS: PIPER-TAZO 3.375 GM IV (PMX) 100 ML IVPB SCH ×2 (02:27→08:07)
[2018-08-17] MEDS: HYDROCODONE/APAP (5/325) TAB PO PRN (05:36)
[2018-08-17] MEDS: INSULIN ASPART [NOVOLOG] 3 ML PEN SC SCH ×2 (08:00→12:00)
[2018-08-17] MEDS: metFORMIN 500 MG TAB PO SCH (08:06)
[2018-08-17 09:14] VITALS: BP 143/89; PULSE 69; RESP 20
[2018-08-17] MEDS: MUPIROCIN 2% 22 GM OINT TOP SCH (09:25)
[2018-08-17] MEDS: HYDROCHLOROTHIAZIDE 12.5 MG CAP PO SCH (09:25)
[2018-08-17] MEDS: FAMOTIDINE 20 MG TAB PO SCH (09:25)
[2018-08-17] MEDS: TRIMETHOPRIM/SULFAMETHOX (DS) TAB PO SCH (09:25)
[2018-08-17] MEDS: ENOXAPARIN 40 MG/0.4 ML SYG SC SCH (09:29)
[2018-08-17] MEDS ORDERED: CEPH500C PO (11:14)
[2018-08-17] MEDS ORDERED: HYDR12.53 PO (11:14)
[2018-08-17] MEDS ORDERED: METF-849 PO (11:14)
[2018-08-17] MEDS ORDERED: SULF-182 PO (11:14)
--- NOTE | 2018-08-17 11:19 | DS ---
Date/Time of Note Date/Time of Note DATE: 08/17/18 TIME: 11:18 Discharge Summary Admission/Discharge Info Admit Date/Time Aug 12, 2018 at 08:59 Discharge Date/Time Patient Condition: Stable Hospital Course Patient is a -[place] male with a past medical history significant for asthma, BPH, hypertension who presents to [facility] for lower extremity swelling and leg wounds. Recently patient has been noticing worsening edema in his legs and was treated for subsequent cellulitis after he began to scratch and itch and to begin a secondary infection. Echocardiogram was done to show heart was functioning within normal limits and did not explain patient's bilateral lower extremity swelling. Vascular studies were done as well as a vascular surgeon consultation. No significant issues were found to have her vascular surgeon did state that he needed an Unna boot as well as outpatient vascular work-up and possible correction of his acute on chronic venous insufficiency. Patient will finish a 7-day course of Bactrim and Keflex as per infectious disease recommendations until August 24, 2018. Patient will need continued wound care of the bilateral lower extremity wounds. Patient is to continue BPH medications of Flomax and patient was diagnosed with new onset diabetes mellitus. Patient was seen by field logistics coordinator and then was also started on metformin during this hospitalization and patient will follow-up with his primary care provider. Of note patient's insurance company was notified to attempt to make an appointment with his primary care provider within 1 to 2 weeks as patient will need continued follow-up, patient knows to follow-up with vascular surgery as well as his primary care provider as soon as possible. Patient is stable for discharge. Patient was started on hydrochlorothiazide in order to help his swelling as well as his high blood pressure. Discharge diagnosis Bilateral lower extremity pain secondary to edema, resolving Bilateral lower extremity edema, Venous insufficiency New onset diabetes mellitus type 2 Asthma history BPH Hypertension Home Meds Active Scripts Hydrochlorothiazide (Hydrochlorothiazide) 12.5 Mg Capsule, 12.5 MG PO DAILY for 30 Days, CAP Prov:MALA DUARTE 08/17/18 Metformin* (Glucophage*) 500 Mg Tab, 500 MG PO BID WITH MEALS for 30 Days, TAB Prov:MALA DUARTE 08/17/18 Sulfamethoxazole/Trimethoprim (Sulfamethoxazole-Tmp Ds Tablet) 1 Each Tablet, 1 TAB PO BID for 7 Days, TAB Prov:MALA DUARTE 08/17/18 Cephalexin* (Cephalexin*) 500 Mg Capsule, 500 MG PO Q8 for 7 Days, CAP Prov:MALA DUARTE 08/17/18 Tamsulosin Hcl* (Flomax*) 0.4 Mg Cap.er.24h, 0.4 MG PO QPM, #7 CAP Prov:GERARDO BYRD MD 07/02/17 Reported Medications Albuterol Sulfate* (Albuterol Sulfate* Neb) 0.083%-3 Ml Neb, 1.25 MG NEB TID PRN for WHEEZING AND SOB, #30 VIAL 07/02/17 Discontinued Reported Medications Albuterol Sulfate* (Ventolin HFA*) 18 Gm Hfa.aer.ad, 2 PUFF INHALATION Q4H, #1 INHALER 07/02/17 Discontinued Scripts Ondansetron Hcl* (Zofran*) 8 Mg Tab, 8 MG PO Q6H PRN for NAUSEA AND OR VOMITING, #20 TAB Prov:GERARDO BYRD MD 07/02/17 Oxycodone Hcl* (IR) (Oxycodone Hcl*) 5 Mg Capsule, 5 MG PO Q6 PRN for PAIN, #10 TAB Prov:GERARDO BYRD MD 07/02/17 Cephalexin* (Keflex*) 500 Mg Capsule, 500 MG PO BID for 10 Days, CAP Prov:GERARDO BYRD MD 07/02/17 Ibuprofen* (Motrin*) 600 Mg Tab, 600 MG PO Q6H PRN for PAIN, #30 TAB Prov:GERARDO BYRD MD 07/02/17 Primary Care Provider Not On Staff Doctor Time spent on discharge: > 30 minutes Pending Labs Laboratory Tests Test 08/16/18 13:03 08/16/18 18:04 08/16/18 21:15 08/17/18 04:27 Bedside 111 94 98 Glucose mg/dL (70-220) mg/dL (70-220) mg/dL (70-220) White Blood 9.5 Count 10^3/ul (4.8-1 0.8) Red Blood 4.46 Count 10^6/ul (4.70- 6.10) Hemoglobin 13.2 g/dl (14.0-18. 0) Hematocrit 40.6 % (42.0-52.0) Mean 91.0 Corpuscular fl (82.0-101.0 Volume ) Mean 29.6 Corpuscular pg (29.0-33.0) Hemoglobin Mean 32.5 Corpuscular g/dl (32.0-37. Hemoglobin Conc 0) ent Red Cell 12.3 Distribution % (11.5-14.5) Width Platelet Count 405 10^3/UL (140-4 15) Mean Platelet 9.3 Volume fl (7.4-10.4) Immature 0.400 Granulocytes % % (0.001-0.429 ) Neutrophils % 63.3 % (39.0-77.0) Lymphocytes % 23.8 % (15.0-51.0) Monocytes % 8.6 % (0.0-11.0) Eosinophils % 3.4 % (0.0-7.0) Basophils % 0.5 % (0.0-2.0) Nucleated Red 0.0 Blood Cells % /100WBC (0.0-0 .0) Immature 0.040 Granulocytes # 10^3/ul (0.0-0 .031) Neutrophils # 6.0 10^3/ul (1.6-7 .5) Lymphocytes # 2.3 10^3/ul (0.8-2 .9) Monocytes # 0.8 10^3/ul (0.3-0 .9) Eosinophils # 0.3 10^3/ul (0.0-0 .5) Basophils # 0.1 10^3/ul (0.0-0 .1) Nucleated Red 0.0 Blood Cells # 10^3/ul (0.0-0 .0) Sodium Level 139 mmol/L (135-14 4) Potassium 3.9 Level mmol/L (3.5-5. 1) Chloride Level 105 mmol/L (97-110 ) Carbon Dioxide 24 Level mmol/L (21-31) Anion Gap 10 (5-13) Blood Urea 14 Nitrogen mg/dl (7-20) Creatinine 1.17 mg/dl (0.61-1. 24) Est Glomerular > 60 Filtrat mL/min (>60) Rate mL/min Glucose Level 144 mg/dl (70-220) Calcium Level 9.6 mg/dl (8.4-10. 2) Phosphorus 3.9 Level mg/dl (2.5-4.9 ) Magnesium 1.9 Level mg/dl (1.7-2.5 ) Test 08/17/18 08:04 Bedside 129 Glucose mg/dL (70-220) MALA DUARTE Aug 17, 2018 11:19
--- NOTE | 2018-08-17 13:59 | CONS ---
Assessment/Plan Assessment/Plan Hospital Course (Demo Recall) No acute changes patient looks comfortable no fevers. WBC 9.5 no shift no bands. BUN 14 creatinine 1.17. Wound cultures negative. Antimicrobials: Zosyn Bactrim Physical examination well-developed elderly man who is alert in no distress head atraumatic normocephalic neck is supple chest rise symmetrical breath sounds clear heart S1-S2 abdomen soft bowel sounds present extremities with b ilateral lower extremities dressings intact Assessment: 1. Bilateral lower extremities chronic wounds, cultures negative likely secondary to prolonged antibiotic course. Plan: Stable, ok dc on oral Doxycycline and Keflex Consultation Date/Type/Reason Admit Date/Time Aug 12, 2018 at 08:59 Initial Consult Date Type of Consult id Date/Time of Note DATE: 08/17/18 TIME: 13:59 Exam/Review of Systems Exam Vitals Vital Signs Date Temp Pulse Resp B/P (MAP) Pulse Ox O2 O2 Flow FiO2 Time Delivery Rate 08/17/18 98.6 69 20 143/89 96 09:14 (107) 08/17/18 Room Air 02:00 08/16/18 21 21:48 Intake and Output 08/16/18 08/16/18 08/17/18 1515:00 23:00 07:00 IntakeIntake Total 440 ml 840 ml 200 ml OutputOutput Total 900 ml 550 ml 700 ml BalanceBalance -460 ml 290 ml -500 ml Results Result Diagram: 08/17/18 0427 08/17/18 0427 Results 24hrs Laboratory Tests Test 08/16/18 18:04 08/16/18 21:15 08/17/18 04:27 08/17/18 08:04 Bedside Glucose 94 98 129 White Blood Count 9.5 Red Blood Count 4.46 L Hemoglobin 13.2 L Hematocrit 40.6 L Mean Corpuscular Volume 91.0 Mean Corpuscular 29.6 Hemoglobin Mean Corpuscular 32.5 Hemoglobin Concent Red Cell Distribution 12.3 Width Platelet Count 405 Mean Platelet Volume 9.3 Immature Granulocytes % 0.400 Neutrophils % 63.3 Lymphocytes % 23.8 Monocytes % 8.6 Eosinophils % 3.4 Basophils % 0.5 Nucleated Red Blood 0.0 Cells % Immature Granulocytes # 0.040 H Neutrophils # 6.0 Lymphocytes # 2.3 Monocytes # 0.8 Eosinophils # 0.3 Basophils # 0.1 Nucleated Red Blood 0.0 Cells # Sodium Level 139 Potassium Level 3.9 Chloride Level 105 Carbon Dioxide Level 24 Anion Gap 10 Blood Urea Nitrogen 14 Creatinine 1.17 Est Glomerular Filtrat > 60 Rate mL/min Glucose Level 144 Calcium Level 9.6 Phosphorus Level 3.9 Magnesium Level 1.9 Test 08/17/18 12:12 Bedside Glucose 92 Medications Medication Current Medications Oxycodone HCl (Roxicodone) 5 mg Q6H PRN PO PAIN; Start 08/12/18 at 09:30 Tamsulosin HCl (Flomax) 0.4 mg QPM PO Last administered on 08/16/18at 21:12; Admin Dose 0.4 MG; Start 08/12/18 at 21:00 IV Flush (NS 3 ml) 3 ml PER PROTOCOL IV ; Start 08/12/18 at 09:30 Ondansetron HCl (Zofran Inj) 4 mg Q6H PRN IV NAUSEA/VOMITING Last administered on 08/13/18at 20:59; Admin Dose 4 MG; Start 08/12/18 at 09:30 Acetaminophen (Tylenol Tab) 650 mg Q6H PRN PO .PAIN 1-3 OR TEMP; Start 08/12/18 at 09:30 Morphine Sulfate (morphine) 2 mg Q4H PRN IV .SEVERE PAIN 7-10 Last administered on 08/15/18at 09:53; Admin Dose 2 MG; Start 08/12/18 at 09:30 Docusate Sodium (Colace) 100 mg Q12H PRN PO .CONSTIPATION; Start 08/12/18 at 09:30 Magnesium Hydroxide (Milk Of Mag) 30 ml DAILY PRN PO .CONSTIPATION; Start 08/12/18 at 09:30 Famotidine (Pepcid) 20 mg Q12 PO Last administered on 08/17/18at 09:25; Admin Dose 20 MG; Start 08/12/18 at 21:00 Enoxaparin Sodium (Lovenox) 40 mg DAILY SC Last administered on 08/17/18at 09:29; Admin Dose 40 MG; Start 08/13/18 at 09:00 Hydralazine HCl (Apresoline) 10 mg Q4H PRN IV SBP >170 Last administered on 08/12/18at 12:19; Admin Dose 10 MG; Start 08/12/18 at 09:30 Insulin Aspart (Novolog Insulin Pen) NOVOLOG *MILD* ALGORITHM WITH MEALS BEDTIME SC Last administered on 08/14/18at 17:43; Admin Dose 1 UNIT; Start 08/12/18 at 12:00 Acetaminophen/ Hydrocodone Bitart (Garland (5/325)) 1 tab Q4H PRN PO MODERATE PAIN LEVEL 4-6 Last administered on 08/17/18at 05:36; Admin Dose 1 TAB; Start 08/12/18 at 10:30 Mupirocin (Bactroban) 1 applic BID TOP Last administered on 08/17/18at 09:25; Admin Dose 1 APPLIC; Start 08/12/18 at 10:30 Diphenhydramine HCl (Benadryl) 25 mg Q6H PRN IV itching; Start 08/12/18 at 10:30 Miscellaneous Information 1 ea NOTE XX ; Start 08/12/18 at 11:00 Glucose (Glutose) 15 gm Q15M PRN PO DECREASED GLUCOSE; Start 08/12/18 at 11:00 Glucose (Glutose) 22.5 gm Q15M PRN PO DECREASED GLUCOSE; Start 08/12/18 at 11:00 Dextrose (D50w Syringe) 25 ml Q15M PRN IV DECREASED GLUCOSE; Start 08/12/18 at 11:00 Dextrose (D50w Syringe) 50 ml Q15M PRN IV DECREASED GLUCOSE; Start 08/12/18 at 11:00 Glucagon (Glucagen) 1 mg Q15M PRN IM DECREASED GLUCOSE; Start 08/12/18 at 11:00 Glucose (Glutose) 15 gm Q15M PRN BUCCAL DECREASED GLUCOSE; Start 08/12/18 at 11:00 Albuterol (Proventil 0.083% (Neb)) 1.25 mg Q4H PRN NEB WHEEZING AND SOB Last administered on 08/16/18at 21:47; Admin Dose 1.25 MG; Start 08/12/18 at 17:30 Metformin HCl (Glucophage) 500 mg BID WITH MEALS PO Last administered on 08/17/18at 08:06; Admin Dose 500 MG; Start 08/14/18 at 18:00 Lidocaine (Xylocaine (Viscous)) 15 ml Q6 PRN PO TOOTHACHE Last administered on 08/15/18at 06:11; Admin Dose 15 ML; Start 08/14/18 at 21:00 Hydrochlorothiazide (Hydrochlorothiazide) 12.5 mg DAILY PO Last administered on 08/17/18at 09:25; Admin Dose 12.5 MG; Start 08/16/18 at 09:00 Trimethoprim/ Sulfamethoxazole (Bactrim (Ds)) 1 tab BID PO Last administered on 08/17/18at 09:25; Admin Dose 1 TAB; Start 08/15/18 at 21:00 Cephalexin (Keflex) 500 mg Q8 PO ; Start 08/17/18 at 14:00 EMIGDIO ROBLES NP Aug 17, 2018 13:59
[2018-08-17] MEDS ORDERED: CEPHALEXIN 500 MG CAP PO SCH (14:00)
[2018-08-17] MEDS ORDERED: DOXY100T21 PO (14:06)
[2018-08-17] MEDS ORDERED: DOXYCYCLINE 100 MG TAB PO SCH (21:00)
== END 2018-08-17 15:47 | DRG 593 ==
LOC: E/R 07:24 → 2NE 08:59
PROVIDERS: ADMIT Internal Medicine; ATTEND Internal Medicine
DX: L97.219 Non-pressure chronic ulcer of right calf with unspecified severity (principal); L03.116 Cellulitis of left lower limb; L03.115 Cellulitis of right lower limb; I87.2 Venous insufficiency (chronic) (peripheral); L97.229 Non-pressure chronic ulcer of left calf with unspecified severity; I10 Essential (primary) hypertension; E11.8 Type 2 diabetes mellitus with unspecified complications; J45.909 Unspecified asthma, uncomplicated; M79.605 Pain in left leg; M79.604 Pain in right leg; N40.0 Benign prostatic hyperplasia without lower urinary tract symptoms; R60.0 Localized edema; I87.8 Other specified disorders of veins
CPT/HCPCS: 36415; 71045; 80048; 80053; 80061; 80069; 81003; 82962; 83036; 83605; 83735; 84100; 84484; 85025; 85610; 85730; 87045; 87070; 87081; 87086; 93005; 93306; 93922; 93970; 94640; 94664; 96365; 97116; 97161; 97166; 97530; J0360; J1650; J1815; J2270; J2405; J2543; J3370; J7030

== ENCOUNTER 2018-08-23 10:20 | Inpatient (IN) | payer OTHER ==
[~2018-08-23] VITALS: Ht 170.2 cm; Wt 90.9 kg
[~2018-08-23 10:20] MED LIST changes: -ALBU18HF INHALATION; -CEPH-443 PO; +CEPH500C PO; +DOXY100T21 PO; +HYDR12.53 PO; -IBUP-1542 PO; +METF-849 PO; -OXYC5CAP17 PO; -ZOF8 PO
[2018-08-23] MEDS ORDERED: CEFEPIME 2GM/50 ML (PMX) 50 ML IVPB STA (10:32)
[2018-08-23] MEDS ORDERED: SODIUM CHLORIDE 0.9% 1L BAG IV* STA (10:32)
[2018-08-23] MEDS ORDERED: VANCOMYCIN 1 GM (PMX) 250 ML IVPB ONE (11:00)
--- NOTE | 2018-08-23 11:13 | ERD ---
ER Documentation Chief Complaint Chief Complaint Fr Yun Shanks, elevated WBC 27.24, Dr Pope, on Abx HPI 67-year-old male was recently hospitalized for lower extremity cellulitis on IV antibiotics. He was recently discharged back to a shelter facility approximately 6 days ago which time he was converted to oral antibiotics. On routine blood test performed yesterday was noted to have a significantly elevated white blood cell count concerning for failure of the oral antibiotics. He was then referred here to the emergency department for evaluation. Upon arrival, the patient states that he is having lower extremity wounds but without significant pain. He denies fevers. He ROS All systems reviewed and are negative except as per history of present illness. Medications Home Meds Active Scripts Doxycycline Monohydrate* (Doxycycline Monohydrate*) 100 Mg Tablet, 100 MG PO BID for 7 Days, TAB Prov:MALA DUARTE 08/17/18 Hydrochlorothiazide (Hydrochlorothiazide) 12.5 Mg Capsule, 12.5 MG PO DAILY for 30 Days, CAP Prov:MALA DUARTE 08/17/18 Metformin* (Glucophage*) 500 Mg Tab, 500 MG PO BID WITH MEALS for 30 Days, TAB Prov:MALA DUARTE 08/17/18 Cephalexin* (Cephalexin*) 500 Mg Capsule, 500 MG PO Q8 for 7 Days, CAP Prov:MALA DUARTE 08/17/18 Tamsulosin Hcl* (Flomax*) 0.4 Mg Cap.er.24h, 0.4 MG PO QPM, #7 CAP Prov:GERARDO BYRD MD 07/02/17 Reported Medications Albuterol Sulfate* (Albuterol Sulfate* Neb) 0.083%-3 Ml Neb, 1.25 MG NEB TID PRN for WHEEZING AND SOB, #30 VIAL 07/02/17 Discontinued Reported Medications Albuterol Sulfate* (Ventolin HFA*) 18 Gm Hfa.aer.ad, 2 PUFF INHALATION Q4H, #1 INHALER 07/02/17 Discontinued Scripts Ondansetron Hcl* (Zofran*) 8 Mg Tab, 8 MG PO Q6H PRN for NAUSEA AND OR VOMITING, #20 TAB Prov:GERARDO BYRD MD 07/02/17 Oxycodone Hcl* (IR) (Oxycodone Hcl*) 5 Mg Capsule, 5 MG PO Q6 PRN for PAIN, #10 TAB Prov:GERARDO BYRD MD 07/02/17 Cephalexin* (Keflex*) 500 Mg Capsule, 500 MG PO BID for 10 Days, CAP Prov:GERARDO BYRD MD 07/02/17 Ibuprofen* (Motrin*) 600 Mg Tab, 600 MG PO Q6H PRN for PAIN, #30 TAB Prov:GERARDO BYRD MD 07/02/17 Allergies Allergies: Coded Allergies: No Known Allergies (Verified Allergy, Mild, 07/02/17) PMhx/Soc History of Surgery: No Anesthesia Reaction: No Hx Neurological Disorder: No Hx Respiratory Disorders: No Hx Cardiac Disorders: No Hx Psychiatric Problems: No Hx Miscellaneous Medical Probl: Yes (Please see EMR) Hx Alcohol Use: No Hx Substance Use: No Hx Tobacco Use: No Smoking Status: Never smoker FmHx Noncontributory for chief complaint Physical Exam Vitals Vital Signs Date Temp Pulse Resp B/P (MAP) Pulse Ox O2 O2 Flow FiO2 Time Delivery Rate 08/23/18 98.1 75 18 132/75 97 10:29 (94) Physical Exam GENERAL: The patient is well developed and appropriate for usual state of health in no apparent distress HEENT: Pupils equal, round, and reactive to light. EOMI. There is no scleral icterus. NECK: C-spine is soft and supple, there is no meningismus. There is no cervical lymphadenopathy. LUNGS: Clear to auscultation bilaterally. There are no rales, wheezes or rhonchi. HEART: Regular rate and rhythm, no murmurs, clicks, rubs or gallops. ABDOMEN: Soft, non-tender, non-distended. There are bowel sounds in all four quadrants. No rebound or guarding. EXTREMITIES: There is no peripheral cyanosis or edema. No focal swelling or erythema. NEURO: The patient moves all four extremities with 5/5 strength. Cranial nerves II - XII are intact. Normal gait. Alert and oriented SKIN: Both lower extremities have chronic wounds with cellulitic changes. No crepitus. HEME/LYMPHATIC: There is no evidence of excessive bruising or lymphedema. PSYCHIATRIC: The patient does not appear anxious or depressed. Result Diagram: 08/23/18 1050 Results 24 hrs Laboratory Tests Test 08/23/18 10:48 08/23/18 10:50 POC Venous Lactate 2.7 mmol/L White Blood Count 8.4 10^3/ul Red Blood Count 4.51 10^6/ul Hemoglobin 13.6 g/dl Hematocrit 41.3 % Mean Corpuscular Volume 91.6 fl Mean Corpuscular Hemoglobin 30.2 pg Mean Corpuscular Hemoglobin Concent 32.9 g/dl Red Cell Distribution Width 12.7 % Platelet Count 374 10^3/UL Mean Platelet Volume 9.2 fl Immature Granulocytes % 0.200 % Neutrophils % 56.6 % Lymphocytes % 29.2 % Monocytes % 10.2 % Eosinophils % 3.0 % Basophils % 0.8 % Nucleated Red Blood Cells % 0.0 /100WBC Immature Granulocytes # 0.020 10^3/ul Neutrophils # 4.8 10^3/ul Lymphocytes # 2.5 10^3/ul Monocytes # 0.9 10^3/ul Eosinophils # 0.3 10^3/ul Basophils # 0.1 10^3/ul Nucleated Red Blood Cells # 0.0 10^3/ul Current Medications Medications Dose Sig/Rosalie Start Time Status Last (Trade) Ordered Route PRN Stop Time Admin Dose Reason Admin Sodium 3,000 ml BOLUS OVER 2 08/23/18 DC 08/23/18 Chloride HOURS STAT 10:32 11:03 (NS) IV* 08/23/18 10:34 Cefepime HCl 50 ml @ ONCE STAT 08/23/18 DC 08/23/18 100 mls/hr IVPB 10:32 11:03 08/23/18 11:01 Vancomycin 250 ml @ ONCE ONCE 08/23/18 HCl 125 mls/hr IVPB 11:00 08/23/18 12:59 Procedures/MDM Patient was taken to a room, seen and evaluated. Comfort measures were initiated. Diagnostic tests were ordered and reviewed. 3 LEAD RHYTHM STRIP: Normal sinus rhythm without ectopy EK lead EKG reviewed by myself: Normal Sinus Rhythm Normal Wingate and intervals No ST elevation, depression, or T wave inversion Impression: Normal EKG RADIOLOGY: Reviewed with the radiologist CONSULTATION: Dr. Pope was notified for admission REEVALUATION: 1111: Diagnostic tests were appreciated and discussed with the patient and arrangements were made for admission to the hospital MEDICAL DECISION MAKIN-year-old male presents to the emergency department with bilateral lower extremity cellulitis. Patient's wounds appear to be cellulitic, but without evidence of abscess. Patient's white blood cell count is not as high today as it was apparently yesterday on the routine lab draw, but his lactate is still elevated thus concerning for ongoing infection. As per my conversations with the patient and his doctor, patient will be admitted to the hospital for IV antibiotics as well as wound care. Departure Diagnosis: Primary Impression: Cellulitis Condition: Yue MCCURDYJOSE Aug 23, 2018 11:13
[2018-08-23] MEDS ORDERED: ONDANSETRON 4 MG INJ IV PRN (11:30)
[2018-08-23] MEDS ORDERED: ACETAMINOPHEN 325 MG TAB PO PRN (11:30)
[2018-08-23] MEDS ORDERED: ENOX40DI2 SC (12:18)
[2018-08-23] MEDS ORDERED: FAMO20TA18 PO (12:20)
[2018-08-23] MEDS ORDERED: DOCU-159 PO (12:21)
[2018-08-23] MEDS ORDERED: ACET-2047 PO (12:21)
[2018-08-23] MEDS ORDERED: HYDR-4011 PO (12:23)
[2018-08-23] MEDS ORDERED: PROT946L PO (12:23)
[2018-08-23] MEDS ORDERED: MULT-542 PO (12:23)
[2018-08-23] MEDS ORDERED: MAGN400O19 PO (12:24)
[2018-08-23] MEDS ORDERED: CEPH500C PO (12:25)
[2018-08-23] MEDS ORDERED: DOXY100T21 PO (12:26)
[2018-08-23] MEDS ORDERED: NOVO3I SC (12:30)
[2018-08-23] MEDS ORDERED: [UNRECOGNIZED DRUG - CODE] TP (12:32)
[2018-08-23] MEDS ORDERED: ACTICOAT (12:32)
--- NOTE | 2018-08-23 12:42 | HP ---
Date/Time of Note Date/Time of Note DATE: 08/23/18 TIME: 12:27 Assessment/Plan VTE Prophylaxis SCD contraindicated: bilateral LE trauma Pharmacological prophylaxis: LMWH Lines/Catheters IV Catheter Type (from Nrs): Saline Lock Assessment/Plan Assessment/Plan -Bilateral lower extremity cellulitis, failed treatment with p.o. antibiotics, start broad-spectrum antibiotics. Dr. Hernandez is asked to see patient in infection disease consultation. Dr. Luciano is asked to see patient in podiatry consultation. -Possible sepsis secondary to bilateral lower extremity cellulitis. -Venous insufficiency, elevate bilateral lower extremities -Preserved ejection fraction per recent echo -Diabetes mellitus type 2, continue metformin and NovoLog. -Hypertension, continue hydrochlorothiazide -BPH, continue Flomax -History of asthma, albuterol as needed Further recommendations based on clinical course. Plan of care discussed with Dr. Pope. Result Diagram: 08/23/18 1050 08/23/18 1050 Results 24hrs Laboratory Tests Test 08/23/18 10:48 08/23/18 10:50 POC Venous Lactate 2.7 *H White Blood Count 8.4 Red Blood Count 4.51 L Hemoglobin 13.6 L Hematocrit 41.3 L Mean Corpuscular Volume 91.6 Mean Corpuscular Hemoglobin 30.2 Mean Corpuscular Hemoglobin Concent 32.9 Red Cell Distribution Width 12.7 Platelet Count 374 Mean Platelet Volume 9.2 Immature Granulocytes % 0.200 Neutrophils % 56.6 Lymphocytes % 29.2 Monocytes % 10.2 Eosinophils % 3.0 Basophils % 0.8 Nucleated Red Blood Cells % 0.0 Immature Granulocytes # 0.020 Neutrophils # 4.8 Lymphocytes # 2.5 Monocytes # 0.9 Eosinophils # 0.3 Basophils # 0.1 Nucleated Red Blood Cells # 0.0 Prothrombin Time 12.5 Prothrombin Time Ratio 1.0 INR International Normalized Ratio 0.92 Activated Partial Thromboplast Time 28.4 Sodium Level 145 H Potassium Level 3.9 Chloride Level 107 Carbon Dioxide Level 24 Anion Gap 14 H Blood Urea Nitrogen 18 Creatinine 1.09 Est Glomerular Filtrat Rate mL/min > 60 Glucose Level 140 Calcium Level 9.5 Total Bilirubin 0.5 Direct Bilirubin 0.00 Indirect Bilirubin 0.5 Aspartate Amino Transf (AST/SGOT) 27 Alanine Aminotransferase (ALT/SGPT) 43 Alkaline Phosphatase 107 Troponin I < 0.012 Total Protein 8.7 H Albumin 4.2 Globulin 4.50 H Albumin/Globulin Ratio 0.93 HPI/ROS Admit Date/Time Admit Date/Time Hx of Present Illness Patient is 67-year-old gentleman with history of newly diagnosed diabetes mellitus type 2, hypertension, BPH, venous insufficiency, asthma, and bilateral lower extremities edema and cellulitis. Patient was evaluated in the hospital for bilateral lower extremities edema and cellulitis and was discharged 6 days ago with oral doxycycline and Keflex to snf facility. Patient had routine blood test performed yesterday and was noted to have white blood cells elevated to 27,000 concerning for failure of oral antibiotics for bilateral lower extremities cellulitis treatment. Patient complains of bilateral lower extremities pain however denies any fever chills denies nausea vomiting diarrhea. PMH/Family/Social Past Medical History Medical History: diabetes, hypertension Medications Current Medications Vancomycin HCl 250 ml @ 125 mls/hr ONCE ONCE IVPB Last administered on 08/23/18at 11:55; Admin Dose 125 MLS/HR; Start 08/23/18 at 11:00; Stop 08/23/18 a t 12:59 Ondansetron HCl (Zofran Inj) 4 mg BRIDGE ORDER PRN IV NAUSEA/VOMITING; Start 08/23/18 at 11:30; Stop 08/24/18 at 11:29 Acetaminophen (Tylenol Tab) 650 mg ER BRIDGE PRN PO .MILD PAIN 1-3 OR TEMP; Start 08/23/18 at 11:30; Stop 08/24/18 at 11:29 Coded Allergies: No Known Allergies (Verified Allergy, Mild, 07/02/17) Past Surgical History Past Surgical Hx: no surgical history Family History Significant Family History: diabetes Social History Alcohol Use: none Smoking Status: Never smoker Drug Use: none Exam/Review of Systems Vital Signs Vitals Vital Signs Date Temp Pulse Resp B/P (MAP) Pulse Ox O2 O2 Flow FiO2 Time Delivery Rate 08/23/18 77 16 104/76 98 Room Air 12:02 (85) 08/23/18 98.1 10:29 Exam Constitutional: alert, oriented Head: normocephalic Neck: supple Respiratory: clear to auscultation Cardiovascular: regular rate and rhythm Gastrointestinal: soft, non-tender Musculoskeletal: nl extremities to inspection Extremities: normal pulses, other (Bilateral lower extremities redness, multiple wounds) Neurological: nl mental status RADCHENKO,RICHARD Aug 23, 2018 12:40
[2018-08-23] MEDS ORDERED: HYDROCODONE/APAP (5/325) TAB PO PRN (13:00)
[2018-08-23] MEDS ORDERED: DOCUSATE SODIUM 100 MG CAP PO PRN (13:00)
[2018-08-23] MEDS: ENOXAPARIN 40 MG/0.4 ML SYG SC SCH (13:25)
[2018-08-23] MEDS ORDERED: GLUCAGON 1 MG INJ IM PRN (13:30)
[2018-08-23] MEDS ORDERED: GLUCOSE GEL 15 GRAM TUBE PO PRN ×2 (13:30)
[2018-08-23] MEDS ORDERED: DEXTROSE 50% 50 ML SYRINGE IV PRN ×2 (13:30)
[2018-08-23] MEDS ORDERED: GLUCOSE GEL 15 GRAM TUBE BUCCAL PRN (13:30)
--- NOTE | 2018-08-23 14:20 | CONS ---
DATE OF ADMISSION: 08/23/2018 DATE OF CONSULTATION: 08/23/2018 TYPE OF CONSULTATION: Infectious disease. REASON FOR CONSULTATION: Antibiotic management. HISTORY OF PRESENT ILLNESS: Cory Lucas is a 67-year-old male who presents to the Emergency Room from [facility] with bilateral lower extremity erythema. He was recently hospitalized for lower ext remity cellulitis and was on IV antibiotics. He was discharged to a [facility] 6 days ago and was converted to oral antibiotics. On routine blood tests he had significantly elevated white count. He was referred to the Emergency Room for evaluation. The patient states that he is having lower extre mity wounds, but without significant pain. Denies fever. PAST MEDICAL HISTORY: As outlined. FAMILY HISTORY: Noncontributory. SOCIAL HISTORY: He does not smoke, drink or abuse drugs. ALLERGIES: None to penicillin, sulfa or foods. MEDICATIONS: Per chart. REVIEW OF SYSTEMS: As per HPI. The patient is diabetic, on metformin and NovoLog, hypertensive and has BPH and history of asthma. LABORATORY DATA: In the Emergency Room his white count was 27,000. The patient was started on vanco mycin. PAST MEDICAL HISTORY: Operations as outlined. FAMILY HISTORY: Noncontributory and as noted, he does not smoke, drink or abuse drugs. PHYSICAL EXAMINATION: GENERAL: He is a well-developed, well-nourished male in no acute distress. VITAL SIGNS: Stable. He is afebrile. SKIN: Without generalized rash. HEENT: Within normal limits. NECK: Supple. LYMPH NODES: None palpable. CHEST: Decreased breath sounds at the bases. HEART: Without murmur or gallop. ABDOMEN: Soft, nontender, without organosplenomegaly or masses. EXTREMITIES: Both lower extremities have chronic wounds with cellulitic changes. RECTAL AND GENITAL: Deferred. NEUROLOGIC: No focal neurological abnormalities. IMPRESSION AND PLAN: The patient comes in with bilateral cellulitis. He was hospitalized recently. He is placed back on vancomycin and also, I believe, on cefepime. Blood cultures were done. Urine cultures were done. We will continue him on vancomycin and cefepime. I want to thank Dr. Zarco and nurse practitioner Richard Leiva for asking us to see this amelia narayanan in consultation. Dictated By: BREANNA SHERWOOD MD, JD/JOHN Conf#: [id number] [facility]#: [id number] CC: MARIELA ZARCO MD; RICHARD LEIVA NP;*[facility]*
[2018-08-23 18:00] VITALS: BP 106/66; PULSE 62; RESP 18
[2018-08-23] MEDS: metFORMIN 500 MG TAB PO SCH (18:05)
[2018-08-23] MEDS: INSULIN ASPART [NOVOLOG] 3 ML PEN SC SCH ×2 (18:05→21:00)
[2018-08-23 18:36] VITALS: Ht 170.2 cm; Wt 90.9 kg
[2018-08-23 20:11] VITALS: BP 126/68; PULSE 78; RESP 18
[2018-08-23] MEDS: TAMSULOSIN (SR) 0.4 MG CAP PO SCH (21:02)
[2018-08-23] MEDS: FAMOTIDINE 20 MG TAB PO SCH (21:02)
[2018-08-23] MEDS: morphine 2 MG INJ IV PRN (21:04)
[2018-08-23] MEDS: MUPIROCIN 2% 22 GM OINT TOP SCH (21:12)
[2018-08-23] MEDS: CLOTRIMAZOLE 1% 30 GM CR TOP SCH (21:12)
--- NOTE | 2018-08-23 21:23 | CONS ---
DATE OF ADMISSION: 08/23/2018 DATE OF CONSULTATION: 08/23/2018 REFERRING PHYSICIAN: Richard Johnson NP REASON FOR CONSULTATION: Bilateral lower extremity cellulitis. HISTORY OF PRESENT ILLNESS: This is a 67-year-old gentleman who was transferred from a alf facility for persistent cellulitis. The patient had failed outpatient treatment. He has chronic venous insufficiency with ulcerations. He has localized pain from dressings adhering to the wounds. The patient had been on doxycycline and Keflex. WBC was 27,000 obtained a couple days ago. PAST MEDICAL HISTORY: Diabetes, hypertension, venous stasis, recurrent cellulitis. ALLERGIES: NONE. PAST SURGICAL HISTORY: None. FAMILY HISTORY: Positive for diabetes. SOCIAL HISTORY: Denies any tobacco or alcohol use. PHYSICAL EXAMINATION: VITAL SIGNS: Temperature is 98.3, pulse rate 62, respiratory rate is 16, blood pressure is 116/77, and pulse ox is 98 on room air. GENERAL: The patient is alert, oriented, in no acute distress. Regular respiration. EXTREMITIES: There is a 1+ pitting edema on bilateral extremities. Multiple crust bilateral lower extremity. There is no active drainage. Wounds have scab. There is some attached gauze dressing to the right lower extremity. Mild tenderness with palpation. He has a 2+ DP and PT pulse. The skin is dry. 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 He is 5/5 dorsiflexion and plantarflexion of bilateral ankles. ASSESSMENT: 1. Cellulitis. 2. Venous stasis, bilateral with ulceration. 3. Leukocytosis. 4. Edema of bilateral lower extremities. PLAN: The patient's WBC is decrease since admission, currently 3.4. Local wound care for the ulceration of bilateral lower extremity. Recommend use of Dakin's for b.i.d. cleansing and Bactroban. No signs of abscess. Cellulitis appears to be resolving and may benefit from a topical antifungal treatment. The patient education provided. Dictated By: BRAYAN CALL/JOHN Conf#: [id number] DID#: [id number] CC: MARIELA ZARCO MD; RICHARD JOHNSON NP;*EndCC* MTDD
[2018-08-24 02:10] VITALS: BP 116/62; PULSE 77; RESP 18
[2018-08-24] MEDS: INSULIN ASPART [NOVOLOG] 3 ML PEN SC SCH ×4 (08:00→20:57)
[2018-08-24 08:07] VITALS: BP 120/67; PULSE 63; RESP 18
[2018-08-24] MEDS: metFORMIN 500 MG TAB PO SCH ×2 (08:08→17:50)
[2018-08-24] MEDS: HYDROCHLOROTHIAZIDE 12.5 MG CAP PO SCH (08:33)
[2018-08-24] MEDS: MULTIVITAMINS THERAPEUTIC TAB PO SCH (08:33)
[2018-08-24] MEDS: FAMOTIDINE 20 MG TAB PO SCH ×2 (08:33→20:57)
[2018-08-24] MEDS: ENOXAPARIN 40 MG/0.4 ML SYG SC SCH (08:34)
[2018-08-24] MEDS: CLOTRIMAZOLE 1% 30 GM CR TOP SCH ×2 (08:37→20:59)
[2018-08-24] MEDS: MUPIROCIN 2% 22 GM OINT TOP SCH ×2 (08:37→20:59)
[2018-08-24] MEDS: DAKINS 0.0125%(1/40) 473 ML SOLUTION TP SCH ×2 (08:39→20:58)
[2018-08-24] MEDS: ALBUTEROL 0.083% (NEB) 2.5 MG/3 ML AMP NEB PRN ×2 (10:49→21:40)
[2018-08-24 14:00] VITALS: BP 124/64; PULSE 64; RESP 18
--- NOTE | 2018-08-24 14:32 | CONS ---
Assessment/Plan Assessment/Plan Hospital Course (Demo Recall) No acute changes patient is awake, looks comfortable no fevers. Antimicrobials: none Physical examination well-developed elderly man who is alert in no distress head atraumatic normocephalic neck is supple chest rise symmetrical breath sounds clear heart S1-S2 abdomen soft bowel sounds present extremities with bilateral lower extremities dressings intact Assessment: 1. Bilateral lower extremities chronic cellulitis/venous stasis==> prior cx neg 2. BPH Plan: Stable, podiatry rec-s noted, continue local wound care/topical Bactroban Consultation Date/Type/Reason Admit Date/Time Aug 23, 2018 at 11:13 Initial Consult Date Type of Consult id Date/Time of Note DATE: 08/24/18 TIME: 14:30 Exam/Review of Systems Exam Vitals Vital Signs Date Temp Pulse Resp B/P (MAP) Pulse Ox O2 O2 Flow FiO2 Time Delivery Rate 08/24/18 79 19 97 21 10:51 08/24/18 98.0 120/67 Room Air 08:07 (84) Intake and Output 08/23/18 08/23/18 08/24/18 1515:00 23:00 07:00 IntakeIntake Total 720 ml OutputOutput Total 200 ml 200 ml BalanceBalance -200 ml 520 ml Results Result Diagram: 08/24/18 0446 08/24/18 0446 Results 24hrs Laboratory Tests Test 08/23/18 14:52 08/23/18 20:55 08/24/18 04:46 08/24/18 08:06 Lactic Acid Level 1.2 Bedside Glucose 96 130 White Blood Count 6.4 # Red Blood Count 4.06 L Hemoglobin 12.1 L Hematocrit 37.2 L Mean Corpuscular 91.6 Volume Mean Corpuscular 29.8 Hemoglobin Mean Corpuscular 32.5 Hemoglobin Concent Red Cell 12.7 Distribution Width Platelet Count 322 Mean Platelet Volume 9.6 Immature 0.200 Granulocytes % Neutrophils % 47.9 Lymphocytes % 34.9 Monocytes % 9.4 Eosinophils % 6.3 Basophils % 1.3 Nucleated Red Blood 0.0 Cells % Immature 0.010 Granulocytes # Neutrophils # 3.1 Lymphocytes # 2.2 Monocytes # 0.6 Eosinophils # 0.4 Basophils # 0.1 Nucleated Red Blood 0.0 Cells # Sodium Level 141 Potassium Level 3.9 Chloride Level 107 Carbon Dioxide Level 28 Anion Gap 6 # Blood Urea Nitrogen 14 Creatinine 0.93 Est Glomerular > 60 Filtrat Rate mL/min Glucose Level 118 Calcium Level 9.1 Test 08/24/18 12:14 Bedside Glucose 111 Medications Medication Current Medications Albuterol (Proventil 0.083% (Neb)) 1.25 mg TID PRN NEB WHEEZING AND SOB Last administered on 08/24/18 10:49; Admin Dose 1.25 MG; Start 08/23/18 at 13:00 Docusate Sodium (Colace) 100 mg BID PRN PO CONSTIPATION; Start 08/23/18 at 13:00 Enoxaparin Sodium (Lovenox) 40 mg DAILY SC Last administered on 08/24/18 0 8:34; Admin Dose 40 MG; Start 08/23/18 at 13:00 Famotidine (Pepcid) 20 mg BID PO Last administered on 08/24/18 08:33; Admin Dose 20 MG; Start 08/23/18 at 21:00 Hydrochlorothiazide (Hydrochlorothiazide) 12.5 mg DAILY PO Last administered on 08/24/18 08:33; Admin Dose 12.5 MG; Start 08/24/18 at 09:00 Acetaminophen/ Hydrocodone Bitart ([place] (5/325)) 1 tab Q8 PRN PO PAIN LEVEL 4- 10; Start 08/23/18 at 13:00 Metformin HCl (Glucophage) 500 mg BID WITH MEALS PO Last administered on 08/24/18 08:08; Admin Dose 500 MG; Start 08/23/18 at 18:00 Multivitamins Therapeutic (Theragran) 1 tab DAILY PO Last administered on 08/24/18 08:33; Admin Dose 1 TAB; Start 08/24/18 at 09:00 Tamsulosin HCl (Flomax) 0.4 mg QPM PO Last administered on 08/23/18 21:02; Admin Dose 0.4 MG; Start 08/23/18 at 21:00 Insulin Aspart (Novolog Insulin Pen) NOVOLOG *MILD* ALGORITHM WITH MEALS BEDTIME SC ; Start 08/23/18 at 18:00 Morphine Sulfate (morphine) 1 mg Q4H PRN IV SEVERE PAIN LEVEL 7-10 Last administered on 08/23/18 21:04; Admin Dose 1 MG; Start 08/23/18 at 13:00 Miscellaneous Information 1 ea NOTE XX ; Start 08/23/18 at 13:30 Glucose (Glutose) 15 gm Q15M PRN PO DECREASED GLUCOSE; Start 08/23/18 at 13:30 Glucose (Glutose) 22.5 gm Q15M PRN PO DECREASED GLUCOSE; Start 08/23/18 at 13:30 Dextrose (D50w Syringe) 25 ml Q15M PRN IV DECREASED GLUCOSE; Start 08/23/18 at 13:30 Dextrose (D50w Syringe) 50 ml Q15M PRN IV DECREASED GLUCOSE; Start 08/23/18 at 13:30 Glucagon (Glucagen) 1 mg Q15M PRN IM DECREASED GLUCOSE; Start 08/23/18 at 13:30 Glucose (Glutose) 15 gm Q15M PRN BUCCAL DECREASED GLUCOSE; Start 08/23/18 at 13:30 Mupirocin (Bactroban) 1 applic BID TOP Last administered on 08/24/18at 08:37; Admin Dose 1 APPLIC; Start 08/23/18 at 21:00 Clotrimazole (Lotrimin Cr) 1 applic BID TOP Last administered on 08/24/18at 08:37; Admin Dose 1 APPLIC; Start 08/23/18 at 21:00 Sodium Hypochlorite (Dakins Diluted (40)) 1 applic BID TP Last administered on 08/24/18at 08:39; Admin Dose 1 APPLIC; Start 08/24/18 at 09:00 EMIGDIO ROBLES NP Aug 24, 2018 14:32
--- NOTE | 2018-08-24 18:02 | PN ---
Date/Time of Note Date/Time of Note DATE: 08/24/18 TIME: 18:00 Assessment/Plan VTE Prophylaxis Risk score (from Ns)>0 risk: 2 SCD applied (from Ns): No SCD contraindicated: other Pharmacological prophylaxis: LMWH Lines/Catheters IV [facility] Saline Lock Urinary Cath still in place: No Assessment/Plan Hospital Course Patient remains hemodynamically stable, afebrile, pain is adequately controlled, good control of blood sugar. Assessment/Plan -Bilateral lower extremity cellulitis, failed treatment with p.o. antibiotics, c ontinue antibiotics per ID. Dr. Hernandez is following in infection disease consultation. Dr. Luciano is following in podiatry consultation. -Possible sepsis secondary to bilateral lower extremity cellulitis, resolving. -Venous insufficiency, elevate bilateral lower extremities -Preserved ejection fraction per recent echo -Diabetes mellitus type 2, continue metformin and NovoLog. -Hypertension, continue hydrochlorothiazide -BPH, continue Flomax -History of asthma, albuterol as needed Further recommendations based on clinical course. Plan of care discussed with Dr. Pope. Result Diagram: 08/24/18 0446 08/24/18 0446 Results 24hrs Laboratory Tests Test 08/23/18 20:55 08/24/18 04:46 08/24/18 08:06 08/24/18 12:14 Bedside Glucose 96 130 111 White Blood Count 6.4 # Red Blood Count 4.06 L Hemoglobin 12.1 L Hematocrit 37.2 L Mean Corpuscular 91.6 Volume Mean Corpuscular 29.8 Hemoglobin Mean Corpuscular 32.5 Hemoglobin Concent Red Cell 12.7 Distribution Width Platelet Count 322 Mean Platelet Volume 9.6 Immature 0.200 Granulocytes % Neutrophils % 47.9 Lymphocytes % 34.9 Monocytes % 9.4 Eosinophils % 6.3 Basophils % 1.3 Nucleated Red Blood 0.0 Cells % Immature 0.010 Granulocytes # Neutrophils # 3.1 Lymphocytes # 2.2 Monocytes # 0.6 Eosinophils # 0.4 Basophils # 0.1 Nucleated Red Blood 0.0 Cells # Sodium Level 141 Potassium Level 3.9 Chloride Level 107 Carbon Dioxide Level 28 Anion Gap 6 # Blood Urea Nitrogen 14 Creatinine 0.93 Est Glomerular > 60 Filtrat Rate mL/min Glucose Level 118 Calcium Level 9.1 Test 08/24/18 17:34 Bedside Glucose 117 Subjective 24 Hr Interval Summary Free Text/Dictation Constitutional: alert, oriented Respiratory: clear to auscultation Cardiovascular: regular rate and rhythm Gastrointestinal: soft, non-tender Musculoskeletal: nl extremities to inspection Extremities: normal pulses, other (Bilateral lower extremities redness, multiple wounds) Neurological: nl mental status Exam/Review of Systems Exam Vitals Vital Signs Date Temp Pulse Resp B/P (MAP) Pulse Ox O2 O2 Flow FiO2 Time Delivery Rate 08/24/18 97.9 64 18 124/64 98 Room Air 14:00 (84) 08/24/18 21 10:51 Intake and Output 08/23/18 08/23/18 08/24/18 1515:00 23:00 07:00 IntakeIntake Total 720 ml OutputOutput Total 200 ml 200 ml BalanceBalance -200 ml 520 ml Exam Constitutional: alert, oriented Respiratory: clear to auscultation Cardiovascular: regular rate and rhythm Gastrointestinal: soft, non-tender Musculoskeletal: nl extremities to inspection Extremities: normal pulses, other (Bilateral lower extremities redness, multiple wounds) Neurological: nl mental status Results Results 24hrs Laboratory Tests Test 08/23/18 20:55 08/24/18 04:46 08/24/18 08:06 08/24/18 12:14 Bedside Glucose 96 130 111 White Blood Count 6.4 # Red Blood Count 4.06 L Hemoglobin 12.1 L Hematocrit 37.2 L Mean Corpuscular 91.6 Volume Mean Corpuscular 29.8 Hemoglobin Mean Corpuscular 32.5 Hemoglobin Concent Red Cell 12.7 Distribution Width Platelet Count 322 Mean Platelet Volume 9.6 Immature 0.200 Granulocytes % Neutrophils % 47.9 Lymphocytes % 34.9 Monocytes % 9.4 Eosinophils % 6.3 Basophils % 1.3 Nucleated Red Blood 0.0 Cells % Immature 0.010 Granulocytes # Neutrophils # 3.1 Lymphocytes # 2.2 Monocytes # 0.6 Eosinophils # 0.4 Basophils # 0.1 Nucleated Red Blood 0.0 Cells # Sodium Level 141 Potassium Level 3.9 Chloride Level 107 Carbon Dioxide Level 28 Anion Gap 6 # Blood Urea Nitrogen 14 Creatinine 0.93 Est Glomerular > 60 Filtrat Rate mL/min Glucose Level 118 Calcium Level 9.1 Test 08/24/18 17:34 Bedside Glucose 117 Medications Medication Current Medications Albuterol (Proventil 0.083% (Neb)) 1.25 mg TID PRN NEB WHEEZING AND SOB Last administered on 08/24/18 10:49; Admin Dose 1.25 MG; Start 08/23/18 at 13:00 Docusate Sodium (Colace) 100 mg BID PRN PO CONSTIPATION; Start 08/23/18 at 13:00 Enoxaparin Sodium (Lovenox) 40 mg DAILY SC Last administered on 08/24/18 08:34; Admin Dose 40 MG; Start 08/23/18 at 13:00 Famotidine (Pepcid) 20 mg BID PO Last administered on 08/24/18 08:33; Admin Dose 20 MG; Start 08/23/18 at 21:00 Hydrochlorothiazide (Hydrochlorothiazide) 12.5 mg DAILY PO Last administered on 08/24/18 08:33; Admin Dose 12.5 MG; Start 08/24/18 at 09:00 Acetaminophen/ Hydrocodone Bitart ([place] (5/325)) 1 tab Q8 PRN PO PAIN LEVEL 4- 10; Start 08/23/18 at 13:00 Metformin HCl (Glucophage) 500 mg BID WITH MEALS PO Last administered on 08/24/18 17:50; Admin Dose 500 MG; Start 08/23/18 at 18:00 Multivitamins Therapeutic (Theragran) 1 tab DAILY PO Last administered on 08/24/18 08:33; Admin Dose 1 TAB; Start 08/24/18 at 09:00 Tamsulosin HCl (Flomax) 0.4 mg QPM PO Last administered on 08/23/18 21:02; Admin Dose 0.4 MG; Start 08/23/18 at 21:00 Insulin Aspart (Novolog Insulin Pen) NOVOLOG *MILD* ALGORITHM WITH MEALS BEDTIME SC ; Start 08/23/18 at 18:00 Morphine Sulfate (morphine) 1 mg Q4H PRN IV SEVERE PAIN LEVEL 7-10 Last administered on 08/23/18 21:04; Admin Dose 1 MG; Start 08/23/18 at 13:00 Miscellaneous Information 1 ea NOTE XX ; Start 08/23/18 at 13:30 Glucose (Glutose) 15 gm Q15M PRN PO DECREASED GLUCOSE; Start 08/23/18 at 13:30 Glucose (Glutose) 22.5 gm Q15M PRN PO DECREASED GLUCOSE; Start 08/23/18 at 13:30 Dextrose (D50w Syringe) 25 ml Q15M PRN IV DECREASED GLUCOSE; Start 08/23/18 at 13:30 Dextrose (D50w Syringe) 50 ml Q15M PRN IV DECREASED GLUCOSE; Start 08/23/18 at 13:30 Glucagon (Glucagen) 1 mg Q15M PRN IM DECREASED GLUCOSE; Start 08/23/18 at 13:30 Glucose (Glutose) 15 gm Q15M PRN BUCCAL DECREASED GLUCOSE; Start 08/23/18 at 13:30 Mupirocin (Bactroban) 1 applic BID TOP Last administered on 08/24/18at 08:37; Admin Dose 1 APPLIC; Start 08/23/18 at 21:00 Clotrimazole (Lotrimin Cr) 1 applic BID TOP Last administered on 08/24/18at 08:37; Admin Dose 1 APPLIC; Start 08/23/18 at 21:00 Sodium Hypochlorite (Dakins Diluted ()) 1 applic BID TP Last administered on 08/24/18at 08:39; Admin Dose 1 APPLIC; Start 08/24/18 at 09:00 RICHARD LEIVA Aug 24, 2018 18:02
[2018-08-24 20:00] VITALS: BP 128/67; PULSE 74; RESP 18
[2018-08-24] MEDS: TAMSULOSIN (SR) 0.4 MG CAP PO SCH (20:57)
[2018-08-24] MEDS: morphine 2 MG INJ IV PRN (21:28)
[2018-08-25 02:00] VITALS: BP 122/71; PULSE 68; RESP 18
--- NOTE | 2018-08-25 05:09 | PN ---
Date/Time of Note Date/Time of Note DATE: 08/25/18 TIME: 05:08 Assessment/Plan VTE Prophylaxis Risk score (from Nsg)>0 risk: 4 SCD applied (from Nsg): No Lines/Catheters IV Catheter Type (from Nrsg): Saline Lock Urinary Cath still in place: No Assessment/Plan Assessment/Plan -Increased leukocytosis, chest x-ray with left lower lobe infiltrate, continue Vanco and cefepime. Dr. Hernandez is following in infection disease consultation. -Stroke. MRI brain confirmed an acute R [employer]ER territory infarct. Dr. Loving is following in neurology consultation. Continue aspirin. Continue PT OT. -E. coli UTI, s/p Rocephin. -DM hemoglobin A1c 7.7. Continue Lantus and NovoLog. -COPD -HTN, continue benazepril -Obesity with BMI of 39.1 -Hx Idiopathic Thrombocytopenic Purpura Further recommendations based on clinical course. Plan of care discussed with Dr. Pope. Result Diagram: 08/24/18 0446 08/24/18 0446 Results 24hrs Laboratory Tests Test 08/24/18 08:06 08/24/18 12:14 08/24/18 17:34 08/24/18 20:56 Bedside Glucose 130 111 117 111 Exam/Review of Systems Exam Vitals Vital Signs Date Temp Pulse Resp B/P (MAP) Pulse Ox O2 O2 Flow FiO2 Time Delivery Rate 08/25/18 97.7 68 18 122/71 97 Room Air 02:00 (88) 08/24/18 21 21:40 Intake and Output 08/24/18 08/24/18 08/25/18 1515:00 23:00 07:00 IntakeIntake Total 1200 ml OutputOutput Total 400 ml BalanceBalance 800 ml Results Results 24hrs Laboratory Tests Test 08/24/18 08:06 08/24/18 12:14 08/24/18 17:34 08/24/18 20:56 Bedside Glucose 130 111 117 111 Medications Medication Current Medications Albuterol (Proventil 0.083% (Neb)) 1.25 mg TID PRN NEB WHEEZING AND SOB Last administered on 08/24/18at 21:40; Admin Dose 1.25 MG; Start 08/23/18 at 13:00 Docusate Sodium (Colace) 100 mg BID PRN PO CONSTIPATION; Start 08/23/18 at 13:00 Enoxaparin Sodium (Lovenox) 40 mg DAILY SC Last administered on 08/24/18 08:34; Admin Dose 40 MG; Start 08/23/18 at 13:00 Famotidine (Pepcid) 20 mg BID PO Last administered on 08/24/18 20:57; Admin Dose 20 MG; Start 08/23/18 at 21:00 Hydrochlorothiazide (Hydrochlorothiazide) 12.5 mg DAILY PO Last administered on 08/24/18 08:33; Admin Dose 12.5 MG; Start 08/24/18 at 09:00 Acetaminophen/ Hydrocodone Bitart ([place] (5/325)) 1 tab Q8 PRN PO PAIN LEVEL 4- 10; Start 08/23/18 at 13:00 Metformin HCl (Glucophage) 500 mg BID WITH MEALS PO Last administered on 08/24/18 17:50; Admin Dose 500 MG; Start 08/23/18 at 18:00 Multivitamins Therapeutic (Theragran) 1 tab DAILY PO Last administered on 08/24/18 08:33; Admin Dose 1 TAB; Start 08/24/18 at 09:00 Tamsulosin HCl (Flomax) 0.4 mg QPM PO Last administered on 08/24/18 20:57; Admin Dose 0.4 MG; Start 08/23/18 at 21:00 Insulin Aspart (Novolog Insulin Pen) NOVOLOG *MILD* ALGORITHM WITH MEALS BEDTIME SC ; Start 08/23/18 at 18:00 Morphine Sulfate (morphine) 1 mg Q4H PRN IV SEVERE PAIN LEVEL 7-10 Last administered on 08/24/18 21:28; Admin Dose 1 MG; Start 08/23/18 at 13:00 Miscellaneous Information 1 ea NOTE XX ; Start 08/23/18 at 13:30 Glucose (Glutose) 15 gm Q15M PRN PO DECREASED GLUCOSE; Start 08/23/18 at 13:30 Glucose (Glutose) 22.5 gm Q15M PRN PO DECREASED GLUCOSE; Start 08/23/18 at 13:30 Dextrose (D50w Syringe) 25 ml Q15M PRN IV DECREASED GLUCOSE; Start 08/23/18 at 13:30 Dextrose (D50w Syringe) 50 ml Q15M PRN IV DECREASED GLUCOSE; Start 08/23/18 at 13:30 Glucagon (Glucagen) 1 mg Q15M PRN IM DECREASED GLUCOSE; Start 08/23/18 at 13:30 Glucose (Glutose) 15 gm Q15M PRN BUCCAL DECREASED GLUCOSE; Start 08/23/18 at 13:30 Mupirocin (Bactroban) 1 applic BID TOP Last administered on 08/24/18at 20:59; Admin Dose 1 APPLIC; Start 08/23/18 at 21:00 Clotrimazole (Lotrimin Cr) 1 applic BID TOP Last administered on 08/24/18at 20:59; Admin Dose 1 APPLIC; Start 08/23/18 at 21:00 Sodium Hypochlorite (Dakins Diluted ()) 1 applic BID TP Last administered on 08/24/18at 20:58; Admin Dose 1 APPLIC; Start 08/24/18 at 09:00 FRANKY MARTINEZ Aug 25, 2018 05:09
[2018-08-25] MEDS: metFORMIN 500 MG TAB PO SCH ×2 (07:57→17:33)
[2018-08-25] MEDS: INSULIN ASPART [NOVOLOG] 3 ML PEN SC SCH ×4 (08:00→21:00)
[2018-08-25] MEDS: ALBUTEROL 0.083% (NEB) 2.5 MG/3 ML AMP NEB PRN ×2 (08:10→20:14)
[2018-08-25 08:11] VITALS: BP 135/72; PULSE 65; RESP 18
[2018-08-25] MEDS: FAMOTIDINE 20 MG TAB PO SCH ×2 (08:32→21:21)
[2018-08-25] MEDS: MULTIVITAMINS THERAPEUTIC TAB PO SCH (08:32)
[2018-08-25] MEDS: HYDROCHLOROTHIAZIDE 12.5 MG CAP PO SCH (08:32)
[2018-08-25] MEDS: ENOXAPARIN 40 MG/0.4 ML SYG SC SCH (08:34)
[2018-08-25] MEDS: DAKINS 0.0125%(1/40) 473 ML SOLUTION TP SCH ×2 (08:38→21:21)
[2018-08-25] MEDS: MUPIROCIN 2% 22 GM OINT TOP SCH ×2 (08:38→21:21)
[2018-08-25] MEDS: CLOTRIMAZOLE 1% 30 GM CR TOP SCH ×2 (08:38→21:22)
[2018-08-25] MEDS: morphine 2 MG INJ IV PRN ×3 (09:42→21:26)
[2018-08-25 14:18] VITALS: BP 134/72; PULSE 65; RESP 18
--- NOTE | 2018-08-25 14:55 | CONS ---
Assessment/Plan Assessment/Plan Hospital Course (Demo Recall) No acute changes patient is awake, looks comfortable no fevers. Antimicrobials: none Physical examination well-developed elderly man who is alert in no distress head atraumatic normocephalic neck is supple chest rise symmetrical breath sounds clear heart S1-S2 abdomen soft bowel sounds present extremities with bilateral lower extremities dressings intact Assessment: 1. Bilateral lower extremities chronic cellulitis/venous stasis==> prior cx neg 2. BPH Plan: Remains stable, continue local wound care per podiatry rec-s Consultation Date/Type/Reason Admit Date/Time Aug 23, 2018 at 11:13 Initial Consult Date Type of Consult id Date/Time of Note DATE: 08/25/18 TIME: 14:54 Exam/Review of Systems Exam Vitals Vital Signs Date Temp Pulse Resp B/P (MAP) Pulse Ox O2 O2 Flow FiO2 Time Delivery Rate 08/25/18 98.0 65 18 134/72 98 Room Air 14:18 (92) 08/25/18 21 08:10 Intake and Output 08/24/18 08/24/18 08/25/18 1515:00 23:00 07:00 IntakeIntake Total 1200 ml OutputOutput Total 400 ml BalanceBalance 800 ml Results Result Diagram: 08/24/18 0446 08/24/18 0446 Results 24hrs Laboratory Tests Test 08/24/18 17:34 08/24/18 20:56 08/25/18 07:55 08/25/18 12:23 Bedside Glucose 117 111 128 121 Medications Medication Current Medications Albuterol (Proventil 0.083% (Neb)) 1.25 mg TID PRN NEB WHEEZING AND SOB Last administered on 08/25/18at 08:10; Admin Dose 1.25 MG; Start 08/23/18 at 13:00 Docusate Sodium (Colace) 100 mg BID PRN PO CONSTIPATION; Start 08/23/18 at 13:00 Enoxaparin Sodium (Lovenox) 40 mg DAILY SC Last administered on 08/25/18at 08:34; Admin Dose 40 MG; Start 08/23/18 at 13:00 Famotidine (Pepcid) 20 mg BID PO Last administered on 08/25/18at 08:32; Admin Dose 20 MG; Start 08/23/18 at 21:00 Hydrochlorothiazide (Hydrochlorothiazide) 12.5 mg DAILY PO Last administered on 08/25/18 08:32; Admin Dose 12.5 MG; Start 08/24/18 at 09:00 Acetaminophen/ Hydrocodone Bitart ([place] (5/325)) 1 tab Q8 PRN PO PAIN LEVEL 4- 10; Start 08/23/18 at 13:00 Metformin HCl (Glucophage) 500 mg BID WITH MEALS PO Last administered on 08/25/18 07:57; Admin Dose 500 MG; Start 08/23/18 at 18:00 Multivitamins Therapeutic (Theragran) 1 tab DAILY PO Last administered on 08/25/18 08:32; Admin Dose 1 TAB; Start 08/24/18 at 09:00 Tamsulosin HCl (Flomax) 0.4 mg QPM PO Last administered on 08/24/18at 20:57; Admin Dose 0.4 MG; Start 08/23/18 at 21:00 Insulin Aspart (Novolog Insulin Pen) NOVOLOG *MILD* ALGORITHM WITH MEALS BEDTIME SC ; Start 08/23/18 at 18:00 Morphine Sulfate (morphine) 1 mg Q4H PRN IV SEVERE PAIN LEVEL 7-10 Last administered on 08/25/18at 09:42; Admin Dose 1 MG; Start 08/23/18 at 13:00 Miscellaneous Information 1 ea NOTE XX ; Start 08/23/18 at 13:30 Glucose (Glutose) 15 gm Q15M PRN PO DECREASED GLUCOSE; Start 08/23/18 at 13:30 Glucose (Glutose) 22.5 gm Q15M PRN PO DECREASED GLUCOSE; Start 08/23/18 at 13:30 Dextrose (D50w Syringe) 25 ml Q15M PRN IV DECREASED GLUCOSE; Start 08/23/18 at 13:30 Dextrose (D50w Syringe) 50 ml Q15M PRN IV DECREASED GLUCOSE; Start 08/23/18 at 13:30 Glucagon (Glucagen) 1 mg Q15M PRN IM DECREASED GLUCOSE; Start 08/23/18 at 13:30 Glucose (Glutose) 15 gm Q15M PRN BUCCAL DECREASED GLUCOSE; Start 08/23/18 at 13:30 Mupirocin (Bactroban) 1 applic BID TOP Last administered on 08/25/18at 08:38; Admin Dose 1 APPLIC; Start 08/23/18 at 21:00 Clotrimazole (Lotrimin Cr) 1 applic BID TOP Last administered on 08/25/18at 08:38; Admin Dose 1 APPLIC; Start 08/23/18 at 21:00 Sodium Hypochlorite (Dakins Diluted ()) 1 applic BID TP Last administered on 08/25/18at 08:38; Admin Dose 1 APPLIC; Start 08/24/18 at 09:00 EMIGDIO ROBLES NP Aug 25, 2018 14:55
[2018-08-25 20:00] VITALS: BP 124/72; PULSE 71; RESP 18
[2018-08-25] MEDS: TAMSULOSIN (SR) 0.4 MG CAP PO SCH (21:21)
[2018-08-26] MEDS: morphine 2 MG INJ IV PRN ×3 (01:26→20:23)
[2018-08-26 02:00] VITALS: BP 115/75; PULSE 71; RESP 18
[2018-08-26 07:21] VITALS: BP 110/71; PULSE 71; RESP 16
[2018-08-26] MEDS: INSULIN ASPART [NOVOLOG] 3 ML PEN SC SCH ×4 (08:00→20:20)
[2018-08-26] MEDS: FAMOTIDINE 20 MG TAB PO SCH ×2 (08:10→20:22)
[2018-08-26] MEDS: HYDROCHLOROTHIAZIDE 12.5 MG CAP PO SCH (08:10)
[2018-08-26] MEDS: MULTIVITAMINS THERAPEUTIC TAB PO SCH (08:10)
[2018-08-26] MEDS: metFORMIN 500 MG TAB PO SCH ×2 (08:10→17:25)
[2018-08-26] MEDS: ENOXAPARIN 40 MG/0.4 ML SYG SC SCH (08:11)
[2018-08-26] MEDS: DAKINS 0.0125%(1/40) 473 ML SOLUTION TP SCH ×2 (10:11→20:25)
[2018-08-26] MEDS: MUPIROCIN 2% 22 GM OINT TOP SCH ×2 (10:12→20:26)
[2018-08-26] MEDS: CLOTRIMAZOLE 1% 30 GM CR TOP SCH ×2 (10:12→20:25)
--- NOTE | 2018-08-26 11:48 | PN ---
Date/Time of Note Date/Time of Note DATE: 08/26/18 TIME: 11:47 Assessment/Plan VTE Prophylaxis Risk score (from [facility] [place])>0 risk: 3 SCD applied (from [facility] [place]): No SCD contraindicated: other Pharmacological prophylaxis: LMWH Lines/Catheters IV Catheter Type (from [facility]): Saline Lock Urinary Cath still in place: No Assessment/Plan Hospital Course -Increased leukocytosis, chest x-ray with left lower lobe infiltrate, continue Vanco and cefepime. Dr. Hernandez is following in infection disease consultation. -Stroke. MRI brain confirmed an acute R ENTERPRISE RESOURCE ANALYST territory infarct. Dr. Loving is following in neurology consultation. Continue aspirin. Continue PT OT. -E. coli UTI, s/p Rocephin. -DM hemoglobin A1c 7.7. Continue Lantus and NovoLog. -COPD -HTN, continue benazepril -Obesity with BMI of 39.1 -Hx Idiopathic Thrombocytopenic Purpura Result Diagram: 08/26/18 0636 08/26/18 0636 Results 24hrs Laboratory Tests Test 08/25/18 12:23 08/25/18 17:27 08/25/18 21:19 08/26/18 06:36 Bedside Glucose 121 97 108 White Blood Count 7.4 Red Blood Count 4.20 L Hemoglobin 12.6 L Hematocrit 38.2 L Mean Corpuscular 91.0 Volume Mean Corpuscular 30.0 Hemoglobin Mean Corpuscular 33.0 Hemoglobin Concent Red Cell 12.3 Distribution Width Platelet Count 305 Mean Platelet Volume 9.7 Immature 0.300 Granulocytes % Neutrophils % 52.7 Lymphocytes % 32.6 Monocytes % 7.9 Eosinophils % 5.6 Basophils % 0.9 Nucleated Red Blood 0.0 Cells % Immature 0.020 Granulocytes # Neutrophils # 3.9 Lymphocytes # 2.4 Monocytes # 0.6 Eosinophils # 0.4 Basophils # 0.1 Nucleated Red Blood 0.0 Cells # Sodium Level 140 Potassium Level 3.9 Chloride Level 105 Carbon Dioxide Level 28 Anion Gap 7 Blood Urea Nitrogen 19 Creatinine 0.90 Est Glomerular > 60 Filtrat Rate mL/min Glucose Level 123 Calcium Level 9.3 Test 08/26/18 08:08 Bedside Glucose 116 Subjective 24 Hr Interval Summary Free Text/Dictation Patient feels as if infection is improving with current treatment Exam/Review of Systems Exam Vitals Vital Signs Date Temp Pulse Resp B/P (MAP) Pulse Ox O2 O2 Flow FiO2 Time Delivery Rate 08/26/18 97.7 71 16 110/71 97 Room Air 07:21 (84) 08/25/18 21 20:15 Intake and Output 08/25/18 08/25/18 08/26/18 1515:00 23:00 07:00 IntakeIntake Total 800 ml 400 ml BalanceBalance 800 ml 400 ml Constitutional: well developed Head: normocephalic, atraumatic Neck: supple Respiratory: clear to auscultation Cardiovascular: regular rate and rhythm Gastrointestinal: soft, non-tender Extremities: normal pulses Results Results 24hrs Laboratory Tests Test 08/25/18 12:23 08/25/18 17:27 08/25/18 21:19 08/26/18 06:36 Bedside Glucose 121 97 108 White Blood Count 7.4 Red Blood Count 4.20 L Hemoglobin 12.6 L Hematocrit 38.2 L Mean Corpuscular 91.0 Volume Mean Corpuscular 30.0 Hemoglobin Mean Corpuscular 33.0 Hemoglobin Concent Red Cell 12.3 Distribution Width Platelet Count 305 Mean Platelet Volume 9.7 Immature 0.300 Granulocytes % Neutrophils % 52.7 Lymphocytes % 32.6 Monocytes % 7.9 Eosinophils % 5.6 Basophils % 0.9 Nucleated Red Blood 0.0 Cells % Immature 0.020 Granulocytes # Neutrophils # 3.9 Lymphocytes # 2.4 Monocytes # 0.6 Eosinophils # 0.4 Basophils # 0.1 Nucleated Red Blood 0.0 Cells # Sodium Level 140 Potassium Level 3.9 Chloride Level 105 Carbon Dioxide Level 28 Anion Gap 7 Blood Urea Nitrogen 19 Creatinine 0.90 Est Glomerular > 60 Filtrat Rate mL/min Glucose Level 123 Calcium Level 9.3 Test 08/26/18 08:08 Bedside Glucose 116 Medications Medication Current Medications Albuterol (Proventil 0.083% (Neb)) 1.25 mg TID PRN NEB WHEEZING AND SOB Last administered on 08/25/18at 20:14; Admin Dose 1.25 MG; Start 08/23/18 at 13:00 Docusate Sodium (Colace) 100 mg BID PRN PO CONSTIPATION; Start 08/23/18 at 13:00 Enoxaparin Sodium (Lovenox) 40 mg DAILY SC Last administered on 08/26/18at 08:11; Admin Dose 40 MG; Start 08/23/18 at 13:00 Famotidine (Pepcid) 20 mg BID PO Last administered on 08/26/18at 08:10; Admin Dose 20 MG; Start 08/23/18 at 21:00 Hydrochlorothiazide (Hydrochlorothiazide) 12.5 mg DAILY PO Last administered on 08/26/18at 08:10; Admin Dose 12.5 MG; Start 08/24/18 at 09:00 Acetaminophen/ Hydrocodone Bitart ([place] (5/325)) 1 tab Q8 PRN PO PAIN LEVEL 4- 10; Start 08/23/18 at 13:00 Metformin HCl (Glucophage) 500 mg BID WITH MEALS PO Last administered on 08/26/18at 08:10; Admin Dose 500 MG; Start 08/23/18 at 18:00 Multivitamins Therapeutic (Theragran) 1 tab DAILY PO Last administered on 08/26/18at 08:10; Admin Dose 1 TAB; Start 08/24/18 at 09:00 Tamsulosin HCl (Flomax) 0.4 mg QPM PO Last administered on 08/25/18at 21:21; Admin Dose 0.4 MG; Start 08/23/18 at 21:00 Insulin Aspart (Novolog Insulin Pen) NOVOLOG *MILD* ALGORITHM WITH MEALS BEDTIME SC ; Start 08/23/18 at 18:00 Morphine Sulfate (morphine) 1 mg Q4H PRN IV SEVERE PAIN LEVEL 7-10 Last administered on 08/26/18at 05:31; Admin Dose 1 MG; Start 08/23/18 at 13:00 Miscellaneous Information 1 ea NOTE XX ; Start 08/23/18 at 13:30 Glucose (Glutose) 15 gm Q15M PRN PO DECREASED GLUCOSE; Start 08/23/18 at 13:30 Glucose (Glutose) 22.5 gm Q15M PRN PO DECREASED GLUCOSE; Start 08/23/18 at 13:30 Dextrose (D50w Syringe) 25 ml Q15M PRN IV DECREASED GLUCOSE; Start 08/23/18 at 13:30 Dextrose (D50w Syringe) 50 ml Q15M PRN IV DECREASED GLUCOSE; Start 08/23/18 at 13:30 Glucagon (Glucagen) 1 mg Q15M PRN IM DECREASED GLUCOSE; Start 08/23/18 at 13:30 Glucose (Glutose) 15 gm Q15M PRN BUCCAL DECREASED GLUCOSE; Start 08/23/18 at 13:30 Mupirocin (Bactroban) 1 applic BID TOP Last administered on 08/26/18at 10:12; Admin Dose 1 APPLIC; Start 08/23/18 at 21:00 Clotrimazole (Lotrimin Cr) 1 applic BID TOP Last administered on 08/26/18at 10:12; Admin Dose 1 APPLIC; Start 08/23/18 at 21:00 Sodium Hypochlorite (Dakins Diluted (40)) 1 applic BID TP Last administered on 08/26/18at 10:11; Admin Dose 1 APPLIC; Start 08/24/18 at 09:00 LISA STALEY Aug 26, 2018 11:48
--- NOTE | 2018-08-26 13:12 | CONS ---
DATE OF ADMISSION: 08/23/2018 DATE OF CONSULTATION: 08/25/2018 SUBJECTIVE FINDINGS: The patient being followed for bilateral lower extremity ulceration. The patient relates pain and now is requesting treatment. The patient has chronic venous insufficiency with ulcerations. His white count has normalized. He denies any fever, nausea, vomiting. Blood cultures remain no growth. OBJECTIVE FINDINGS: VITAL SIGNS: Temperature 97.8, pulse 71, respiratory rate 18, blood pressure 124/72, pulse oximetry is 96% on room air. The patient is alert, oriented. EXTREMITIES: Dressings bilateral lower extremities with 1+ edema, resolving cellulitis, 2+ DP, PT pulse. There is onychogryphotic nails. Pain with palpation. ASSESSMENT: 1. Cellulitis. 2. Onychogryphosis. 3. Pain, bilateral feet. 4. Edema, bilateral lower extremities. PLAN: Debridement of nails x10, cellulitis, resolving. No exudate available for culture. The patient tolerated procedure well. May benefit from outpatient followup. Recommend discharge planning. Dictated By: BRAYAN LYNN DPM RB/JOHN Conf#: [id number] DID#: [id number] CC: MARIELA ZARCO MD;*EndCC* MTDD
[2018-08-26] MEDS: ALBUTEROL 0.083% (NEB) 2.5 MG/3 ML AMP NEB PRN ×2 (13:33→22:10)
[2018-08-26 14:06] VITALS: BP 125/63; PULSE 69; RESP 16
--- NOTE | 2018-08-26 14:52 | CONS ---
Consultation Date/Type/Reason Admit Date/Time Aug 23, 2018 at 11:13 Initial Consult Date Type of Consult SUBJECTIVE: PT is awake, alert, afebrile. States that he is feeling better today. No fevers and states the pain LE is much better. VS: stable T: 98.4 LABS: Reviewed. WBC- 7.4 . BMP- WNL Antimicrobials: none Physical examination: GEN: well-developed male, who is alert in no distress HENT: head atraumatic normocephalic; neck is supple PULM: chest rise symmetrical breath sounds clear Heart S1-S2 Abdomen: soft, bowel sounds present Extremities with bilateral lower extremities dressings intact. Less edema and erythema Assessment: 1. Bilateral lower extremities chronic cellulitis/venous stasis==> prior cx neg 2. BPH Plan: Pt is stable. Continue local wound care per podiatry rec-s. Will monitor off of antbx. Date/Time of Note DATE: 08/26/18 TIME: 14:48 Exam/Review of Systems Exam Vitals Vital Signs Date Temp Pulse Resp B/P (MAP) Pulse Ox O2 O2 Flow FiO2 Time Delivery Rate 08/26/18 98.4 69 16 125/63 98 Room Air 14:06 (83) 08/26/18 21 13:33 Intake and Output 08/25/18 08/25/18 08/26/18 1515:00 23:00 07:00 IntakeIntake Total 800 ml 400 ml BalanceBalance 800 ml 400 ml Results Result Diagram: 08/26/18 0636 08/26/18 0636 Results 24hrs Laboratory Tests Test 08/25/18 17:27 08/25/18 21:19 08/26/18 06:36 08/26/18 08:08 Bedside Glucose 97 108 116 White Blood Count 7.4 Red Blood Count 4.20 L Hemoglobin 12.6 L Hematocrit 38.2 L Mean Corpuscular 91.0 Volume Mean Corpuscular 30.0 Hemoglobin Mean Corpuscular 33.0 Hemoglobin Concent Red Cell 12.3 Distribution Width Platelet Count 305 Mean Platelet Volume 9.7 Immature 0.300 Granulocytes % Neutrophils % 52.7 Lymphocytes % 32.6 Monocytes % 7.9 Eosinophils % 5.6 Basophils % 0.9 Nucleated Red Blood 0.0 Cells % Immature 0.020 Granulocytes # Neutrophils # 3.9 Lymphocytes # 2.4 Monocytes # 0.6 Eosinophils # 0.4 Basophils # 0.1 Nucleated Red Blood 0.0 Cells # Sodium Level 140 Potassium Level 3.9 Chloride Level 105 Carbon Dioxide Level 28 Anion Gap 7 Blood Urea Nitrogen 19 Creatinine 0.90 Est Glomerular > 60 Filtrat Rate mL/min Glucose Level 123 Calcium Level 9.3 Test 08/26/18 12:29 Bedside Glucose 96 Medications Medication Current Medications Albuterol (Proventil 0.083% (Neb)) 1.25 mg TID PRN NEB WHEEZING AND SOB Last administered on 08/26/18 13:33; Admin Dose 1.25 MG; Start 08/23/18 at 13:00 Docusate Sodium (Colace) 100 mg BID PRN PO CONSTIPATION; Start 08/23/18 at 13:00 Enoxaparin Sodium (Lovenox) 40 mg DAILY SC Last administered on 08/26/18 08:11; Admin Dose 40 MG; Start 08/23/18 at 13:00 Famotidine (Pepcid) 20 mg BID PO Last administered on 08/26/18 08:10; Admin Dose 20 MG; Start 08/23/18 at 21:00 Hydrochlorothiazide (Hydrochlorothiazide) 12.5 mg DAILY PO Last administered on 08/26/18 08:10; Admin Dose 12.5 MG; Start 08/24/18 at 09:00 Acetaminophen/ Hydrocodone Bitart ([place] (5/325)) 1 tab Q8 PRN PO PAIN LEVEL 4- 10; Start 08/23/18 at 13:00 Metformin HCl (Glucophage) 500 mg BID WITH MEALS PO Last administered on 08/26/18 08:10; Admin Dose 500 MG; Start 08/23/18 at 18:00 Multivitamins Therapeutic (Theragran) 1 tab DAILY PO Last administered on 08/26/18 08:10; Admin Dose 1 TAB; Start 08/24/18 at 09:00 Tamsulosin HCl (Flomax) 0.4 mg QPM PO Last administered on 08/25/18 21:21; Admin Dose 0.4 MG; Start 08/23/18 at 21:00 Insulin Aspart (Novolog Insulin Pen) NOVOLOG *MILD* ALGORITHM WITH MEALS BEDTI ME SC ; Start 08/23/18 at 18:00 Morphine Sulfate (morphine) 1 mg Q4H PRN IV SEVERE PAIN LEVEL 7-10 Last administered on 08/26/18at 05:31; Admin Dose 1 MG; Start 08/23/18 at 13:00 Miscellaneous Information 1 ea NOTE XX ; Start 08/23/18 at 13:30 Glucose (Glutose) 15 gm Q15M PRN PO DECREASED GLUCOSE; Start 08/23/18 at 13:30 Glucose (Glutose) 22.5 gm Q15M PRN PO DECREASED GLUCOSE; Start 08/23/18 at 13:30 Dextrose (D50w Syringe) 25 ml Q15M PRN IV DECREASED GLUCOSE; Start 08/23/18 at 13:30 Dextrose (D50w Syringe) 50 ml Q15M PRN IV DECREASED GLUCOSE; Start 08/23/18 at 13:30 Glucagon (Glucagen) 1 mg Q15M PRN IM DECREASED GLUCOSE; Start 08/23/18 at 13:30 Glucose (Glutose) 15 gm Q15M PRN BUCCAL DECREASED GLUCOSE; Start 08/23/18 at 13:30 Mupirocin (Bactroban) 1 applic BID TOP Last administered on 08/26/18at 10:12; Admin Dose 1 APPLIC; Start 08/23/18 at 21:00 Clotrimazole (Lotrimin Cr) 1 applic BID TOP Last administered on 08/26/18at 10:12; Admin Dose 1 APPLIC; Start 08/23/18 at 21:00 Sodium Hypochlorite (Dakins Diluted (40)) 1 applic BID TP Last administered on 08/26/18at 10:11; Admin Dose 1 APPLIC; Start 08/24/18 at 09:00 RICHELLE STINSON Aug 26, 2018 14:52
[2018-08-26 20:00] VITALS: BP 124/81; PULSE 81; RESP 18
[2018-08-26] MEDS: TAMSULOSIN (SR) 0.4 MG CAP PO SCH (20:22)
[2018-08-27 02:00] VITALS: BP 120/76; PULSE 76; RESP 18
[2018-08-27] MEDS ORDERED: BENZOCAINE 10% 7 GM GEL MM PRN (02:00)
[2018-08-27 07:23] VITALS: BP 115/66; PULSE 66; RESP 16
[2018-08-27] MEDS: INSULIN ASPART [NOVOLOG] 3 ML PEN SC SCH ×4 (08:00→21:00)
[2018-08-27] MEDS: MULTIVITAMINS THERAPEUTIC TAB PO SCH (08:05)
[2018-08-27] MEDS: metFORMIN 500 MG TAB PO SCH ×2 (08:05→17:02)
[2018-08-27] MEDS: FAMOTIDINE 20 MG TAB PO SCH ×2 (08:05→21:38)
[2018-08-27] MEDS: ENOXAPARIN 40 MG/0.4 ML SYG SC SCH (08:05)
[2018-08-27] MEDS: MUPIROCIN 2% 22 GM OINT TOP SCH ×2 (08:06→10:45)
[2018-08-27] MEDS: HYDROCHLOROTHIAZIDE 12.5 MG CAP PO SCH (08:06)
[2018-08-27] MEDS: CLOTRIMAZOLE 1% 30 GM CR TOP SCH ×2 (08:06→10:45)
[2018-08-27] MEDS: ALBUTEROL 0.083% (NEB) 2.5 MG/3 ML AMP NEB PRN (09:04)
--- NOTE | 2018-08-27 11:39 | PN ---
Date/Time of Note Date/Time of Note DATE: 08/27/18 TIME: 11:39 Assessment/Plan VTE Prophylaxis Risk score (from [facility])>0 risk: 3 SCD applied (from [facility] [place] No SCD contraindicated: other Pharmacological prophylaxis: LMWH Lines/Catheters IV Catheter Type (from [facility] Saline Lock Urinary Cath still in place: No Assessment/Plan Hospital Course -Increased leukocytosis, chest x-ray with left lower lobe infiltrate, continue Vanco and cefepime. Dr. Hernandez is following in infection disease consultation. -Stroke. MRI brain confirmed an acute R ART DIRECTOR territory infarct. Dr. Loving is following in neurology consultation. Continue aspirin. Continue PT OT. -E. coli UTI, s/p Rocephin. -DM hemoglobin A1c 7.7. Continue Lantus and NovoLog. -COPD -HTN, continue benazepril -Obesity with BMI of 39.1 -Hx Idiopathic Thrombocytopenic Purpura Result Diagram: 08/26/1836 08/26/1836 Results 24hrs Laboratory Tests Test 08/26/18 12:29 08/26/18 17:24 08/26/18 20:17 08/27/18 08:00 Bedside Glucose 96 92 109 125 Subjective 24 Hr Interval Summary Free Text/Dictation Patient is feeling better Exam/Review of Systems Exam Vitals Vital Signs Date Temp Pulse Resp B/P (MAP) Pulse Ox O2 O2 Flow FiO2 Time Delivery Rate 08/27/18 77 20 96 Nasal 2.0 09:04 Cannula 08/27/18 97.1 115/66 07:23 (82) 08/26/18 21 22:10 Intake and Output 08/26/18 08/26/18 08/27/18 1515:00 23:00 07:00 IntakeIntake Total 750 ml 360 ml OutputOutput Total 200 ml BalanceBalance 750 ml 160 ml Constitutional: well developed Head: normocephalic, atraumatic Neck: supple Respiratory: clear to auscultation Cardiovascular: regular rate and rhythm Gastrointestinal: soft, non-tender Extremities: normal pulses Results Results 24hrs Laboratory Tests Test 08/26/18 12:29 08/26/18 17:24 08/26/18 20:17 08/27/18 08:00 Bedside Glucose 96 92 109 125 Medications Medication Current Medications Albuterol (Proventil 0.083% (Neb)) 1.25 mg TID PRN NEB WHEEZING AND SOB Last administered on 08/27/18 09:04; Admin Dose 1.25 MG; Start 08/23/18 at 13:00 Docusate Sodium (Colace) 100 mg BID PRN PO CONSTIPATION; Start 08/23/18 at 13: 00 Enoxaparin Sodium (Lovenox) 40 mg DAILY SC Last administered on 08/27/18 08:05; Admin Dose 40 MG; Start 08/23/18 at 13:00 Famotidine (Pepcid) 20 mg BID PO Last administered on 08/27/18 08:05; Admin Dose 20 MG; Start 08/23/18 at 21:00 Hydrochlorothiazide (Hydrochlorothiazide) 12.5 mg DAILY PO Last administered on 08/27/18 08:06; Admin Dose 12.5 MG; Start 08/24/18 at 09:00 Acetaminophen/ Hydrocodone Bitart ([place] (5/325)) 1 tab Q8 PRN PO PAIN LEVEL 4- 10; Start 08/23/18 at 13:00 Metformin HCl (Glucophage) 500 mg BID WITH MEALS PO Last administered on 08/27/18 08:05; Admin Dose 500 MG; Start 08/23/18 at 18:00 Multivitamins Therapeutic (Theragran) 1 tab DAILY PO Last administered on 08/27/18 08:05; Admin Dose 1 TAB; Start 08/24/18 at 09:00 Tamsulosin HCl (Flomax) 0.4 mg QPM PO Last administered on 08/26/18 20:22; Admin Dose 0.4 MG; Start 08/23/18 at 21:00 Insulin Aspart (Novolog Insulin Pen) NOVOLOG *MILD* ALGORITHM WITH MEALS BEDTIME SC ; Start 08/23/18 at 18:00 Morphine Sulfate (morphine) 1 mg Q4H PRN IV SEVERE PAIN LEVEL 7-10 Last administered on 08/26/18 20:23; Admin Dose 1 MG; Start 08/23/18 at 13:00 Miscellaneous Information 1 ea NOTE XX ; Start 08/23/18 at 13:30 Glucose (Glutose) 15 gm Q15M PRN PO DECREASED GLUCOSE; Start 08/23/18 at 13:30 Glucose (Glutose) 22.5 gm Q15M PRN PO DECREASED GLUCOSE; Start 08/23/18 at 13:30 Dextrose (D50w Syringe) 25 ml Q15M PRN IV DECREASED GLUCOSE; Start 08/23/18 at 13:30 Dextrose (D50w Syringe) 50 ml Q15M PRN IV DECREASED GLUCOSE; Start 08/23/18 at 13:30 Glucagon (Glucagen) 1 mg Q15M PRN IM DECREASED GLUCOSE; Start 08/23/18 at 13:30 Glucose (Glutose) 15 gm Q15M PRN BUCCAL DECREASED GLUCOSE; Start 08/23/18 at 13:30 Mupirocin (Bactroban) 1 applic BID TOP Last administered on 08/27/18at 10:45; Admin Dose 1 APPLIC; Start 08/23/18 at 21:00 Clotrimazole (Lotrimin Cr) 1 applic BID TOP Last administered on 08/27/18at 10:45; Admin Dose 1 APPLIC; Start 08/23/18 at 21:00 Sodium Hypochlorite (Dakins Diluted (1/40)) 1 applic BID TP Last administered on 08/26/18at 20:25; Admin Dose 1 APPLIC; Start 08/24/18 at 09:00 Benzocaine (Orajel) 1 applic BID PRN MM PAIN; Start 08/27/18 at 02:00 LISA STALEY Aug 27, 2018 11:39
[2018-08-27] MEDS: DAKINS 0.0125%(1/40) 473 ML SOLUTION TP SCH ×2 (12:15→21:38)
[2018-08-27 14:22] VITALS: BP 114/72; PULSE 75; RESP 16
--- NOTE | 2018-08-27 14:58 | CONS ---
Consultation Date/Type/Reason Admit Date/Time Aug 23, 2018 at 11:13 Initial Consult Date Type of Consult SUBJECTIVE: PT is awake, alert, afebrile. States that he is feeling better today. No fevers VS: stable T: 98.3 LABS: Reviewed. Antimicrobials: none Physical examination: GEN: well-developed male, who is alert in no distress HENT: head atraumatic normocephalic; neck is supple PULM: chest rise symmetrical breath sounds clear Heart S1-S2 Abdomen: soft, bowel sounds present Extremities with bilateral lower extremities dressings intact. Less edema and erythema Assessment: 1. Bilateral lower extremities chronic cellulitis/venous stasis==> prior cx neg 2. BPH Plan: Pt is stable. Continue local wound care per podiatry rec-s. Will monitor off of antbx. D/C planning today Date/Time of Note DATE: 08/27/18 TIME: 14:57 Exam/Review of Systems Exam Vitals Vital Signs Date Temp Pulse Resp B/P (MAP) Pulse Ox O2 O2 Flow FiO2 Time Delivery Rate 08/27/18 98.3 75 16 114/72 100 Room Air 14:22 (86) 08/27/18 2.0 09:04 08/26/18 21 22:10 Intake and Output 08/26/18 08/26/18 08/27/18 1515:00 23:00 07:00 IntakeIntake Total 750 ml 360 ml OutputOutput Total 200 ml BalanceBalance 750 ml 160 ml Results Result Diagram: 08/26/18 0636 08/26/18 0636 Results 24hrs Laboratory Tests Test 08/26/18 17:24 08/26/18 20:17 08/27/18 08:00 08/27/18 12:12 Bedside Glucose 92 109 125 147 Medications Medication Current Medications Albuterol (Proventil 0.083% (Neb)) 1.25 mg TID PRN NEB WHEEZING AND SOB Last administered on 08/27/18at 09:04; Admin Dose 1.25 MG; Start 08/23/18 at 13:00 Docusate Sodium (Colace) 100 mg BID PRN PO CONSTIPATION; Start 08/23/18 at 13:00 Enoxaparin Sodium (Lovenox) 40 mg DAILY SC Last administered on 08/27/18at 08:05; Admin Dose 40 MG; Start 08/23/18 at 13:00 Famotidine (Pepcid) 20 mg BID PO Last administered on 08/27/18 08:05; Admin D ose 20 MG; Start 08/23/18 at 21:00 Hydrochlorothiazide (Hydrochlorothiazide) 12.5 mg DAILY PO Last administered on 08/27/18 08:06; Admin Dose 12.5 MG; Start 08/24/18 at 09:00 Acetaminophen/ Hydrocodone Bitart ([place] (5/325)) 1 tab Q8 PRN PO PAIN LEVEL 4- 10; Start 08/23/18 at 13:00 Metformin HCl (Glucophage) 500 mg BID WITH MEALS PO Last administered on 08/27/18 08:05; Admin Dose 500 MG; Start 08/23/18 at 18:00 Multivitamins Therapeutic (Theragran) 1 tab DAILY PO Last administered on 08:05; Admin Dose 1 TAB; Start 08/24/18 at 09:00 Tamsulosin HCl (Flomax) 0.4 mg QPM PO Last administered on 08/26/18at 20:22; Admin Dose 0.4 MG; Start 08/23/18 at 21:00 Insulin Aspart (Novolog Insulin Pen) NOVOLOG *MILD* ALGORITHM WITH MEALS BEDTIME SC Last administered on 08/27/18at 12:13; Admin Dose 1 UNIT; Start 08/23/18 at 18:00 Morphine Sulfate (morphine) 1 mg Q4H PRN IV SEVERE PAIN LEVEL 7-10 Last administered on 08/26/18at 20:23; Admin Dose 1 MG; Start 08/23/18 at 13:00 Miscellaneous Information 1 ea NOTE XX ; Start 08/23/18 at 13:30 Glucose (Glutose) 15 gm Q15M PRN PO DECREASED GLUCOSE; Start 08/23/18 at 13:30 Glucose (Glutose) 22.5 gm Q15M PRN PO DECREASED GLUCOSE; Start 08/23/18 at 13:30 Dextrose (D50w Syringe) 25 ml Q15M PRN IV DECREASED GLUCOSE; Start 08/23/18 at 13:30 Dextrose (D50w Syringe) 50 ml Q15M PRN IV DECREASED GLUCOSE; Start 08/23/18 at 13:30 Glucagon (Glucagen) 1 mg Q15M PRN IM DECREASED GLUCOSE; Start 08/23/18 at 13:30 Glucose (Glutose) 15 gm Q15M PRN BUCCAL DECREASED GLUCOSE; Start 08/23/18 at 13:30 Mupirocin (Bactroban) 1 applic BID TOP Last administered on 08/27/18at 10:45; Admin Dose 1 APPLIC; Start 08/23/18 at 21:00 Clotrimazole (Lotrimin Cr) 1 applic BID TOP Last administered on 08/27/18at 10:45; Admin Dose 1 APPLIC; Start 08/23/18 at 21:00 Sodium Hypochlorite (Dakins Diluted ()) 1 applic BID TP Last administered on 08/27/18at 12:15; Admin Dose 1 APPLIC; Start 08/24/18 at 09:00 Benzocaine (Orajel) 1 applic BID PRN MM PAIN; Start 08/27/18 at 02:00 RICHELLE STINSON Aug 27, 2018 14:58
[2018-08-27 20:00] VITALS: BP 133/90; PULSE 80; RESP 18
[2018-08-27] MEDS: TAMSULOSIN (SR) 0.4 MG CAP PO SCH (21:38)
[2018-08-28 02:00] VITALS: BP_SYST 121; BP_SYST 142; BP_DIAS 58; BP_DIAS 74; PULSE 64; PULSE 83; RESP 17
[2018-08-28] MEDS: ALBUTEROL 0.083% (NEB) 2.5 MG/3 ML AMP NEB PRN (02:27)
[2018-08-28] MEDS: INSULIN ASPART [NOVOLOG] 3 ML PEN SC SCH ×3 (08:00→16:50)
[2018-08-28] MEDS: metFORMIN 500 MG TAB PO SCH ×2 (08:18→16:50)
[2018-08-28 08:30] VITALS: BP 105/66; PULSE 74; RESP 17
[2018-08-28] MEDS: DAKINS 0.0125%(1/40) 473 ML SOLUTION TP SCH (09:19)
[2018-08-28] MEDS: MUPIROCIN 2% 22 GM OINT TOP SCH (09:20)
[2018-08-28] MEDS: FAMOTIDINE 20 MG TAB PO SCH (09:21)
[2018-08-28] MEDS: MULTIVITAMINS THERAPEUTIC TAB PO SCH (09:21)
[2018-08-28] MEDS: HYDROCHLOROTHIAZIDE 12.5 MG CAP PO SCH (09:21)
[2018-08-28] MEDS: CLOTRIMAZOLE 1% 30 GM CR TOP SCH (09:22)
[2018-08-28] MEDS: ENOXAPARIN 40 MG/0.4 ML SYG SC SCH (09:25)
[2018-08-28] MEDS ORDERED: HYDR12.53 PO (15:36)
[2018-08-28] MEDS ORDERED: METF-849 PO (15:36)
[2018-08-28] MEDS ORDERED: NOVO3I SC (15:36)
[2018-08-28] MEDS ORDERED: ALBU2.5V3 NEB (15:36)
[2018-08-28] MEDS ORDERED: CLO15CR1 TOP (15:36)
[2018-08-28] MEDS ORDERED: MUPI22OI2 TOP (15:36)
--- NOTE | 2018-08-28 15:51 | CONS ---
Assessment/Plan Assessment/Plan Hospital Course (Demo Recall) No acute events Antimicrobials: none Physical examination well-developed elderly man who is alert in no distress head atraumatic normocephalic neck is supple chest rise symmetrical breath terra nds clear heart S1-S2 abdomen soft bowel sounds present extremities with bilateral lower extremities dressings intact Assessment: 1. Bilateral lower extremities chronic cellulitis/venous stasis==> prior cx neg 2. BPH Plan: Remains stable, pending dc Consultation Date/Type/Reason Admit Date/Time Aug 23, 2018 at 11:13 Initial Consult Date Type of Consult id Date/Time of Note DATE: 08/28/18 TIME: 15:50 Exam/Review of Systems Exam Vitals Vital Signs Date Temp Pulse Resp B/P (MAP) Pulse Ox O2 O2 Flow FiO2 Time Delivery Rate 08/28/18 97.9 74 17 105/66 94 Room Air 08:30 (79) 08/27/18 2.0 09:04 08/26/18 21 22:10 Intake and Output 08/27/18 08/27/18 08/28/18 1515:00 23:00 07:00 IntakeIntake Total 760 ml 360 ml BalanceBalance 760 ml 360 ml Results Result Diagram: 08/26/18 0636 08/26/18 0636 Results 24hrs Laboratory Tests Test 08/27/18 17:01 08/27/18 21:31 08/28/18 08:19 08/28/18 12:46 Bedside Glucose 108 115 129 92 Medications Medication Current Medications Albuterol (Proventil 0.083% (Neb)) 1.25 mg TID PRN NEB WHEEZING AND SOB Last administered on 08/28/18at 02:27; Admin Dose 1.25 MG; Start 08/23/18 at 13:00 Docusate Sodium (Colace) 100 mg BID PRN PO CONSTIPATION; Start 08/23/18 at 13:00 Enoxaparin Sodium (Lovenox) 40 mg DAILY SC Last administered on 08/28/18at 09:25; Admin Dose 40 MG; Start 08/23/18 at 13:00 Famotidine (Pepcid) 20 mg BID PO Last administered on 08/28/18at 09:21; Admin Dose 20 MG; Start 08/23/18 at 21:00 Hydrochlorothiazide (Hydrochlorothiazide) 12.5 mg DAILY PO Last administered on 08/28/18 09:21; Admin Dose 12.5 MG; Start 08/24/18 at 09:00 Acetaminophen/ Hydrocodone Bitart ([place] (5/325)) 1 tab Q8 PRN PO PAIN LEVEL 4- 10; Start 08/23/18 at 13:00 Metformin HCl (Glucophage) 500 mg BID WITH MEALS PO Last administered on 08/28/18 08:18; Admin Dose 500 MG; Start 08/23/18 at 18:00 Multivitamins Therapeutic (Theragran) 1 tab DAILY PO Last administered on 08/28/18 09:21; Admin Dose 1 TAB; Start 08/24/18 at 09:00 Tamsulosin HCl (Flomax) 0.4 mg QPM PO Last administered on 08/27/18 21:38; Admin Dose 0.4 MG; Start 08/23/18 at 21:00 Insulin Aspart (Novolog Insulin Pen) NOVOLOG *MILD* ALGORITHM WITH MEALS BEDT RAOUL SC Last administered on 08/27/18 12:13; Admin Dose 1 UNIT; Start 08/23/18 at 18:00 Morphine Sulfate (morphine) 1 mg Q4H PRN IV SEVERE PAIN LEVEL 7-10 Last administered on 08/26/18 20:23; Admin Dose 1 MG; Start 08/23/18 at 13:00 Miscellaneous Information 1 ea NOTE XX ; Start 08/23/18 at 13:30 Glucose (Glutose) 15 gm Q15M PRN PO DECREASED GLUCOSE; Start 08/23/18 at 13:30 Glucose (Glutose) 22.5 gm Q15M PRN PO DECREASED GLUCOSE; Start 08/23/18 at 13:30 Dextrose (D50w Syringe) 25 ml Q15M PRN IV DECREASED GLUCOSE; Start 08/23/18 at 13:30 Dextrose (D50w Syringe) 50 ml Q15M PRN IV DECREASED GLUCOSE; Start 08/23/18 at 13:30 Glucagon (Glucagen) 1 mg Q15M PRN IM DECREASED GLUCOSE; Start 08/23/18 at 13:30 Glucose (Glutose) 15 gm Q15M PRN BUCCAL DECREASED GLUCOSE; Start 08/23/18 at 13:30 Mupirocin (Bactroban) 1 applic BID TOP Last administered on 08/28/18 09:20; Admin Dose 1 APPLIC; Start 08/23/18 at 21:00 Clotrimazole (Lotrimin Cr) 1 applic BID TOP Last administered on 08/28/18at 0 9:22; Admin Dose 1 APPLIC; Start 08/23/18 at 21:00 Sodium Hypochlorite (Dakins Diluted ()) 1 applic BID TP Last administered on 08/28/18at 09:19; Admin Dose 1 APPLIC; Start 08/24/18 at 09:00 Benzocaine (Orajel) 1 applic BID PRN MM PAIN; Start 08/27/18 at 02:00 EMIGDIO ROBLES NP Aug 28, 2018 15:51
--- NOTE | 2018-08-28 19:07 | DS ---
Date/Time of Note Date/Time of Note DATE: 08/28/18 TIME: 19:04 Discharge Summary Admission/Discharge Info Admit Date/Time Aug 23, 2018 at 11:13 Discharge Date/Time Aug 28, 2018 at 17:47 Patient Condition: Stable Hx of Present Illness Patient is 67-year-old gentleman with history of newly diagnosed diabetes mellitus type 2, hypertension, BPH, venous insufficiency, asthma, and bilateral lower extremities edema and cellulitis. Patient was evaluated in the hospital for bilateral lower extremities edema and cellulitis and was discharged 6 days ago with oral doxycycline and Keflex to care home facility. Patient had routine blood test performed yesterday and was noted to have white blood cells elevated to 27,000 concerning for failure of oral antibiotics for bilateral lower extremities cellulitis treatment. Patient complains of bilateral lower extremities pain however denies any fever chills denies nausea vomiting diarrhea. Hospital Course Patient discharged home with home health services for wound care -Bilateral lower extremity cellulitis, status post IV antibiotics, continue topical treatment. Dr. Hernandez is following in infection disease consultation. Dr. Luciano is following in podiatry consultation. -Possible sepsis secondary to bilateral lower extremity cellulitis, resolving. -Venous insufficiency, elevate bilateral lower extremities -Preserved ejection fraction per recent echo -Diabetes mellitus type 2, continue metformin and NovoLog. -Hypertension, continue hydrochlorothiazide -BPH, continue Flomax -History of asthma, albuterol as needed Plan of care discussed with Dr. Pope. Home Meds Active Scripts Clotrimazole (Clotrim) 15 Gm Cr, 1 APPLIC TOP BID for 7 Days Prov:RICHARD LEIVA 08/28/18 Mupirocin* (Bactroban*) 2% -22 Gram Oint...g., 1 APPLIC TOP BID for 7 Days Prov:RICHARD LEIVA 08/28/18 Insulin Aspart* (Novolog Insulin Pen*) 100 Unit/Ml Soln, 0 SC .SLIDING SCALE AC for 30 Days, EA 71-150 = 0 UNIT 151-200 = 2 UNITS 201-250 = 4 UNITS 251-300 = 6 UNITS 301-350 = 8 UNITS 351-400 =10 UNITS > 400 GIVE 12 UNITS AND CALL MD GIVE AC MEALS AND AT BEDTIME Prov:RICHARD LEIVA 08/28/18 Hydrochlorothiazide (Hydrochlorothiazide) 12.5 Mg Capsule, 12.5 MG PO DAILY for 30 Days, CAP Prov:RICHARD LEIVA 08/28/18 Metformin* (Glucophage*) 500 Mg Tab, 500 MG PO BID WITH MEALS for 30 Days, TAB Prov:RICHARD LEIVA 08/28/18 Albuterol Sulfate* (Albuterol Sulfate* Neb) 0.083%-3 Ml Neb, 1.25 MG NEB TID PRN for WHEEZING AND SOB, #30 VIAL Prov:RICHARD LEIVA 08/28/18 Tamsulosin Hcl* (Flomax*) 0.4 Mg Cap.er.24h, 0.4 MG PO QPM, #7 CAP Prov:GERARDO BYRD MD 07/02/17 Reported Medications Silver (Acticoat Flex 7) 1 Each Bandage, EACH TP EVERY OTHER DAY, #1 TO RIGHT AND LEFT LEGS 08/23/18 Multivitamin* (Daily Value*) 1 Each Tablet, 1 TAB PO DAILY, TAB 08/23/18 Docusate Sodium* (Docusate Sodium*) 100 Mg Capsule, 100 MG PO BID PRN for CONSTIPATION, #60 CAP 08/23/18 Acetaminophen* (Acetaminophen*) 650 Mg Tablet, 650 MG PO Q6H PRN for PAIN LEVEL 1-3, #30 TAB 08/23/18 Famotidine* (Famotidine*) 20 Mg Tablet, 20 MG PO BID, #60 TAB 08/23/18 Discontinued Reported Medications [Acticoat] No Conflict Check 08/23/18 Doxycycline Monohydrate* (Doxycycline Monohydrate*) 100 Mg Tablet, 100 MG PO BID, TAB STOP 08-24-18 08/23/18 Cephalexin* (Cephalexin*) 500 Mg Capsule, 500 MG PO Q8, #21 CAP STOP 08-24-18 08/23/18 Magnesium Hydroxide* (Milk Of Magnesia*) 400 Mg/5 Ml Oral.susp, 30 ML PO DAILY PRN for CONSTIPATION, ML 08/23/18 Protein Supplement (Promod) 946 Ml Liquid, 30 ML PO BID 08/23/18 Hydrocodone/Acetaminophen ([place] 5-325 Tablet) 1 Each Tablet, 1 EACH PO Q8 PRN for PAIN LEVEL 4-10, TAB 08/23/18 Enoxaparin Sodium* (Enoxaparin Sodium*) 40 Mg/0.4 Ml Syringe, 40 MG SC DAILY, SYR 08/23/18 Discontinued Scripts Doxycycline Monohydrate* (Doxycycline Monohydrate*) 100 Mg Tablet, 100 MG PO BID for 7 Days, TAB Prov:MALA DUARTE 08/17/18 Cephalexin* (Cephalexin*) 500 Mg Capsule, 500 MG PO Q8 for 7 Days, CAP Prov:MALA DUARTE 08/17/18 Follow-up Plan Discharge patient when arranged for home health wound care services by case management, patient to follow-up with Dr. Luciano, podiatry in 1-2 weeks. Primary Care Provider Not On Staff Doctor Time spent on discharge: > 30 minutes Pending Labs Laboratory Tests Test 08/27/18 21:31 08/28/18 08:19 08/28/18 12:46 08/28/18 16:48 Bedside 115 129 92 92 Glucose mg/dL (70-220) mg/dL (70-220) mg/dL (70-220) mg/dL (70-220) RICHARD LEIVA Aug 28, 2018 19:07
== END 2018-08-28 17:47 | disposition home health service (06) | DRG 871 ==
LOC: E/R 10:20 → PP2 11:13
PROVIDERS: ADMIT Internal Medicine; ATTEND Internal Medicine
DX: A41.9 Sepsis, unspecified organism (principal); I63.9 Cerebral infarction, unspecified; L03.116 Cellulitis of left lower limb; N39.0 Urinary tract infection, site not specified; D69.3 Immune thrombocytopenic purpura; I50.30 Unspecified diastolic (congestive) heart failure; L03.115 Cellulitis of right lower limb; B96.20 Unspecified Escherichia coli [E. coli] as the cause of diseases classified elsewhere; E66.9 Obesity, unspecified; Z68.31 Body mass index [BMI] 31.0-31.9, adult; N40.0 Benign prostatic hyperplasia without lower urinary tract symptoms; I87.2 Venous insufficiency (chronic) (peripheral); E11.9 Type 2 diabetes mellitus without complications; L60.2 Onychogryphosis; J44.9 Chronic obstructive pulmonary disease, unspecified; I11.0 Hypertensive heart disease with heart failure
CPT/HCPCS: 36415; 71045; 80048; 80053; 82962; 83605; 84484; 85025; 85610; 85730; 87081; 93005; 93970; 94640; 94664; 96374; J1650; J1815; J2270; J3370; J7030